=== PATIENT | male | born 1960 | race Caucasian/White ===

== ENCOUNTER → 2020-01-06 15:35 | Outpatient (CLI) | payer OTHER, SELFPAY ==
--- NOTE | 2020-01-06 15:54 | CT_ITS ---
PROCEDURE: CT ABDOMEN PELVIS WO CON CLINICAL INDICATION: UNSPECIFIED KIDNEY FAILURE, LUQ ABD PAIN Left flank pain, left lower quadrant with nausea and chills COMPARISON: No exams were available for comparison TECHNIQUE: Axial images obtained with sagittal and coronal reformats. All CT scans at the facility use one or more dose reduction, viz: automated exposure control, ma/kV adjustment per patient size (including targeted exams where dose is matched to indication, i.e. head), or iterative reconstruction technique. FINDINGS: LOWER THORAX: No acute finding ABDOMEN & PELVIS: Mild nonspecific thickening of the distal esophagus. There are few hypodense areas of the liver in both right and left hepatic lobe measuring up to 15 mm. The spleen, adrenal glands, pancreas, and gallbladder have an unremarkable appearance. No renal or ureteral calculi are evident. A 3 cm by 3.8 cm isodense exophytic mass projects off the lower aspect of the right kidney and could represent a renal cyst. This nodule is indeterminate and may be due to a cyst however the density is slightly higher than expected. Suggest ultrasound for confirmation. There is a small right parapelvic renal cyst also suspected. Atherosclerotic changes are present within the aorta. There are few small retroperitoneal lymph nodes. Unremarkable appendix. No intestinal obstruction or free air. There is colonic diverticulosis but no evidence of diverticulitis. No acute bony findings. IMPRESSION: 1. No acute finding. 2. Colonic diverticulosis without diverticulitis. 3. 3.8 cm I so density projecting off of lateral aspect of the right kidney which may represent a renal cyst. The density is slightly greater than expected therefore, ultrasound is suggested to confirm cystic or solid nature of this lesion. Dictated by: Carrington Vazquez MD 01/06/2020 17:07 Carrington Vazquez MD in [place] 01/06/2020 17:07
== END ==
PROVIDERS: Visit Provider Internal Medicine Adolescent Medicine
DX: R10.12 Left upper quadrant pain (principal); N19 Unspecified kidney failure
CPT/HCPCS: 74176

== ENCOUNTER → 2020-01-24 11:02 | Outpatient (CLI) | payer OTHER, SELFPAY ==
[2020-01-24 11:42] LABS: Basophils # 0.1 K/mm3 (0-0.2); Eosinophils # 0.5 K/mm3 (0.0-0.4); Eosinophils % 8.6 % (0.1-12.0); Hematocrit 38.2 % (42.0-52.0); Hemoglobin 11.8 g/dL (14.1-18.0); Lymphocytes # 1.6 K/mm3 (0.7-4.5); Mean Corpuscular HGB Conc 30.9 g/dL (31.8-35.4); Mean Corpuscular Hemoglobin 29.7 pg (27.0-31.2); Mean Corpuscular Volume 96.1 fl (80-94); Monocytes # 0.4 K/mm3 (0.1-1.0); Monocytes % 6.3 % (1.7-9.3); Neutrophils # 3.5 K/mm3 (1.8-7.8); Neutrophils % 57.2 % (37.0-80.0); Platelet Count 167 K/mm3 (142-424); Red Blood Count 3.97 M/mm3 (4.60-6.20); White Blood Count 6.2 K/mm3 (4.8-10.8)
[2020-01-24 12:28] LABS: Alanine Aminotransferase 16 U/L (12-78); Albumin Level 4.4 g/dl (3.5-5.0); Albumin/Globulin Ratio 1.6 (1.1-1.8); Alkaline Phosphatase 103 U/L (38-126); Anion Gap 16.3 mEq/L (5-15); Aspartate Amino Transferase 22 U/L (17-59); Bilirubin,Total 0.5 mg/dl (0.2-1.3); Blood Urea Nitrogen 38 mg/dl (9-20); Calcium 7.9 mg/dl (8.4-10.2); Carbon Dioxide 21 mmol/L (22.0-30.0); Chloride 108 mmol/L (98-107); Chol/HDL Ratio 4.7 (1-3.5); Cholesterol 222 mg/dl (140-200); Estimated Glomerular Filt Rate 10 ml/min (>60); GFR (African American) 12 ML/MIN (>60); Globulin 2.8 g/dL (1.3-3.2); Glucose 97 mg/dl (74-100); HDL Cholesterol 47 mg/dl (40-60); Lipase 315 U/L (23-300); Potassium 4.3 mmoL/L (3.5-5.1); Sodium 141 mmol/L (136-145); Total Protein,Serum 7.2 g/dl (6.3-8.2); Triglycerides 219 mg/dl (30-150); VLDL Cholesterol 44 mg/dL (0-40)
[2020-01-24 12:38] LABS: Direct LDL Cholesterol 136.06 mg/dL (100-129)
[2020-01-24 12:59] LABS: Thyroid Stimulating Hormone 0.53 uIU/mL (0.465-4.68)
[2020-01-24 13:45] LABS: Hemoglobin A1C 5.8 % (4.0-6.0)
[2020-01-24 15:28] LABS: Phosphorous 6.2 mg/dl (2.5-4.5)
== END ==
PROVIDERS: Visit Provider Internal Medicine Adolescent Medicine
DX: I10 Essential (primary) hypertension (principal); R10.12 Left upper quadrant pain; N19 Unspecified kidney failure
CPT/HCPCS: 36415; 80053; 80061; 83036; 83690; 84100; 84443; 85025

== ENCOUNTER → 2020-02-10 10:57 | Outpatient (CLI) | payer OTHER, SELFPAY ==
[2020-02-10 11:01] LABS: Microscopic, Urine URINE MICROSCOPIC (MICROSCOPIC)
[2020-02-10 11:36] LABS: Appearance,Urine CLEAR (Clear); Bilirubin,Urine Negative (Negative); Blood, Urine 1+ (Negative); Color,Urine YELLOW (Yellow); Glucose,Urine (UA) TRACE (Negative); Ketones,Urine Negative (Negative); Leukocyte Esterase,Urine Negative (Negative); Nitrate,Urine Negative (Negative); Protein,Urine 2+ (Negative); Specific Gravity, Urine 1.025 (1.005-1.030); Urobilinogen,Urine 0.2 EU/dl (0.2)
[2020-02-10 11:48] LABS: Basophils # 0.1 K/mm3 (0-0.2); Eosinophils # 0.3 K/mm3 (0.0-0.4); Eosinophils % 3.9 % (0.1-12.0); Hematocrit 39.9 % (42.0-52.0); Hemoglobin 12.4 g/dL (14.1-18.0); Lymphocytes # 1.4 K/mm3 (0.7-4.5); Lymphocytes % 22.5 % (10-50); Mean Corpuscular Hemoglobin 29.1 pg (27.0-31.2); Mean Corpuscular Volume 94.1 fl (80-94); Mean Platelet Volume 8.6 fl (7.4-10.4); Monocytes # 0.4 K/mm3 (0.1-1.0); Monocytes % 6.3 % (1.7-9.3); Neutrophils # 4.2 K/mm3 (1.8-7.8); Neutrophils % 66.2 % (37.0-80.0); Platelet Count 195 K/mm3 (142-424); Red Blood Count 4.24 M/mm3 (4.60-6.20); Red Cell Distribution Width 13.1 % (11.5-17.5); White Blood Count 6.4 K/mm3 (4.8-10.8)
[2020-02-10 11:50] LABS: Amorphous Sediment,Urine 1+ /lpf; Creatinine,Urine Random 95 mg/dL (Not Estab.); Squamous Epithelial Cell,Urine Occasional #/hpf (0-5); WBC,Urine Occasional #/hpf (0-3)
[2020-02-10 14:28] LABS: Albumin Level 4.4 g/dl (3.5-5.0); Anion Gap 16.7 mEq/L (5-15); Blood Urea Nitrogen 39 mg/dl (9-20); Calcium 8.6 mg/dl (8.4-10.2); Carbon Dioxide 20 mmol/L (22.0-30.0); Chloride 109 mmol/L (98-107); Estimated Glomerular Filt Rate 11 ml/min (>60); GFR (African American) 13 ML/MIN (>60); Glucose 101 mg/dl (74-100); Phosphorous 5.8 mg/dl (2.5-4.5); Potassium 4.7 mmoL/L (3.5-5.1); Sodium 141 mmol/L (136-145)
[2020-02-10 14:41] LABS: Intact Parathyroid Hormone 545.6 pg/mL (7.5-53.5)
[2020-02-10 14:46] LABS: 25-OH Vitamin D, Total 40.3 ng/mL (30-100)
== END ==
PROVIDERS: Visit Provider Internal Medicine Nephrology
DX: N18.5 Chronic kidney disease, stage 5 (principal)
CPT/HCPCS: 36415; 80069; 81001; 82306; 82570; 83970; 84155; 85025

== ENCOUNTER → 2020-02-13 09:25 | Outpatient (POV) | payer OTHER, SELFPAY | PROVIDERS: Visit Provider Internal Medicine Nephrology | DX: Z00.00 Encounter for general adult medical examination without abnormal findings (principal) ==

== ENCOUNTER → 2020-03-16 10:39 | Outpatient (CLI) | payer OTHER, SELFPAY ==
--- NOTE | 2020-03-16 10:41 | US_ITS ---
PROCEDURE: US KIDNEY CLINICAL INDICATION: CHRONIC KIDNEY DISEASE COMPARISON: CT CT ABDOMEN PELVIS WO CON from 01/06/2020 FINDINGS: The right kidney is [id number]. No hydronephrosis, cortical thinning, or renal mass or perinephric fluid collection is evident.. There is a 4 x 3 cm cyst along the lower pole of the right kidney corresponding to the CT abnormality. The left kidney is [id number]. No hydronephrosis, cortical thinning, or renal mass or perinephric fluid collection is evident. IMPRESSION: CT abnormality of the right kidney corresponds to a 4 cm benign-appearing cyst. Dictated by: Carrington Vazquez MD 03/16/2020 17:22 Carrington Vazquez MD in [place] 03/16/2020 17:22
[2020-03-17 11:18] LABS: Hep A Ab, IgM Negative (Negative); Hepatitis B Core Antibody IgM Negative (Negative); Hepatitis B Surface Antigen Negative (Negative)
[2020-03-17 12:55] LABS: Complement C3 101 mg/dL (82-167); Hepatitis C Antibody <0.1 s/co ratio (0.0-0.9)
[2020-03-17 15:18] LABS: Free Kappa Lt Chains 103.2 mg/L (3.3-19.4)
[2020-03-18 20:12] LABS: Myeloperoxidase Antibody <9.0 U/mL (0.0-9.0)
[2020-03-19 10:29] LABS: Antiproteinase 3 (PR-3) Abs 3.6 U/mL (0.0-3.5)
[2020-03-19 10:30] LABS: Antinuclear Antibodies, IFA Negative (.)
[2020-03-19 13:39] LABS: Anti-DNA (DS) Ab Qn 1 IU/mL (0-9)
[2020-03-19 16:11] LABS: Albumin 3.7 g/dL (2.9-4.4); Alpha-1-Globulin 0.2 g/dL (0.0-0.4); Alpha-2-Globulin 0.6 g/dL (0.4-1.0); Gamma Globulin 0.8 g/dL (0.4-1.8); Protein, Total 6.3 g/dL (6.0-8.5)
[2020-03-22 11:01] LABS: Renin Activity, Plasma 2.146 ng/mL/hr (0.167-5.380)
== END ==
PROVIDERS: PCP Internal Medicine Adolescent Medicine; Visit Provider Internal Medicine Nephrology
DX: N18.5 Chronic kidney disease, stage 5 (principal)
CPT/HCPCS: 36415; 76770; 80074; 82088; 83520; 83883; 84155; 84165; 84244; 86038; 86161; 86225

== ENCOUNTER → 2020-03-19 09:05 | Outpatient (POV) | payer OTHER, SELFPAY | PROVIDERS: Visit Provider Internal Medicine Nephrology | DX: Z00.00 Encounter for general adult medical examination without abnormal findings (principal) ==

== ENCOUNTER → 2020-05-04 12:54 | Outpatient (CLI) | payer OTHER, SELFPAY ==
[2020-05-04 13:32] LABS: Basophils # 0.1 K/mm3 (0-0.2); Basophils % 1.2 % (0.1-2.0); Eosinophils # 0.3 K/mm3 (0.0-0.4); Eosinophils % 4.7 % (0.1-12.0); Hematocrit 37.5 % (42.0-52.0); Hemoglobin 12.4 g/dL (14.1-18.0); Lymphocytes % 28.6 % (10-50); Mean Corpuscular HGB Conc 33.1 g/dL (31.8-35.4); Mean Corpuscular Hemoglobin 29.9 pg (27.0-31.2); Mean Corpuscular Volume 90.4 fl (80-94); Monocytes # 0.5 K/mm3 (0.1-1.0); Monocytes % 6.8 % (1.7-9.3); Neutrophils # 4.1 K/mm3 (1.8-7.8); Neutrophils % 58.8 % (37.0-80.0); Platelet Count 193 K/mm3 (142-424); Red Blood Count 4.15 M/mm3 (4.60-6.20); Red Cell Distribution Width 13.7 % (11.5-17.5)
[2020-05-04 14:04] LABS: Chloride 101 mmol/L (98-107); Potassium 3.7 mmoL/L (3.5-5.1); Sodium 138 mmol/L (136-145)
[2020-05-04 14:07] LABS: Alanine Aminotransferase 11 U/L (12-78); Albumin Level 4.6 g/dl (3.5-5.0); Albumin/Globulin Ratio 1.6 (1.1-1.8); Alkaline Phosphatase 122 U/L (38-126); Anion Gap 17.7 mEq/L (5-15); Aspartate Amino Transferase 16 U/L (17-59); Bilirubin,Total 0.4 mg/dl (0.2-1.3); Blood Urea Nitrogen 62 mg/dl (9-20); Calcium 8.4 mg/dl (8.4-10.2); Carbon Dioxide 23 mmol/L (22.0-30.0); Estimated Glomerular Filt Rate 8 ml/min (>60); GFR (African American) 10 ML/MIN (>60); Globulin 2.9 g/dL (1.3-3.2); Glucose 128 mg/dl (74-100); Phosphorous 7.5 mg/dl (2.5-4.5); Total Protein,Serum 7.5 g/dl (6.3-8.2)
[2020-05-04 14:45] LABS: 25-OH Vitamin D, Total 48.9 ng/mL (30-100)
[2020-05-04 17:36] LABS: Intact Parathyroid Hormone 758.6 pg/mL (7.5-53.5)
[2020-05-07 14:46] LABS: Calcium, Ionized 4.3 mg/dL (4.5-5.6)
== END ==
PROVIDERS: Visit Provider Internal Medicine Adolescent Medicine
DX: I12.9 Hypertensive chronic kidney disease with stage 1 through stage 4 chronic kidney disease, or unspecified chronic kidney disease (principal); N18.4 Chronic kidney disease, stage 4 (severe); E83.39 Other disorders of phosphorus metabolism
CPT/HCPCS: 36415; 80053; 82306; 82330; 83970; 84100; 85025

== ENCOUNTER → 2020-06-23 09:06 | Outpatient (CLI) | payer OTHER, SELFPAY ==
[2020-06-23 09:31] LABS: Coronavirus 19 IgM Antibody Negative (Negative)
[2020-06-23 11:29] LABS: Coronavirus 19 IgG Antibody Negative (Negative)
== END ==
PROVIDERS: Visit Provider Internal Medicine Gastroenterology
DX: Z01.818 Encounter for other preprocedural examination (principal); Z20.822 Contact with and (suspected) exposure to COVID-19; Z12.11 Encounter for screening for malignant neoplasm of colon
CPT/HCPCS: 36415; 86328

== ENCOUNTER → 2020-07-13 09:23 | Outpatient (CLI) | payer OTHER, SELFPAY ==
[2020-07-13 10:32] LABS: Albumin Level 4.6 g/dl (3.5-5.0); Anion Gap 15.5 mEq/L (5-15); Blood Urea Nitrogen 65 mg/dl (9-20); Calcium 8.1 mg/dl (8.4-10.2); Carbon Dioxide 22 mmol/L (22.0-30.0); Chloride 104 mmol/L (98-107); Estimated Glomerular Filt Rate 9 ml/min (>60); GFR (African American) 11 ML/MIN (>60); Glucose 116 mg/dl (74-100); Phosphorous 6.1 mg/dl (2.5-4.5); Potassium 3.5 mmoL/L (3.5-5.1); Sodium 138 mmol/L (136-145)
[2020-07-13 10:45] LABS: Intact Parathyroid Hormone 735.8 pg/mL (7.5-53.5)
[2020-07-13 10:50] LABS: 25-OH Vitamin D, Total 57.8 ng/mL (30-100)
[2020-07-14 19:15] LABS: Calcium, Ionized 4.3 mg/dL (4.5-5.6)
== END ==
PROVIDERS: Visit Provider Internal Medicine Nephrology
DX: N18.5 Chronic kidney disease, stage 5 (principal)
CPT/HCPCS: 36415; 80069; 82306; 82330; 83970

== ENCOUNTER → 2020-07-16 10:57 | Outpatient (POV) | payer OTHER, SELFPAY | PROVIDERS: Visit Provider Internal Medicine Nephrology | DX: Z00.00 Encounter for general adult medical examination without abnormal findings (principal) ==

== ENCOUNTER → 2020-08-04 10:56 | Outpatient (CLI) | payer OTHER, SELFPAY ==
[2020-08-04 13:38] LABS: Coronavirus 19 IgG Antibody Negative (Negative); Coronavirus 19 IgM Antibody Negative (Negative)
== END ==
PROVIDERS: Visit Provider Internal Medicine Gastroenterology
DX: Z01.812 Encounter for preprocedural laboratory examination (principal); Z20.822 Contact with and (suspected) exposure to COVID-19; Z12.11 Encounter for screening for malignant neoplasm of colon
CPT/HCPCS: 36415; 86328

== ENCOUNTER 2020-08-06 08:02 | Day surgery (SDC) | payer OTHER, SELFPAY ==
[2020-07-31 11:12] VITALS: BMI 26.6
[2020-08-06] VITALS (7 sets, daily range): BP systolic 141–195; BP diastolic 80–100; PULSE 52–74; RESP 18; TEMP 36.3; O2SAT 95–99
--- NOTE | 2020-08-06 09:00 | P.PCN_ITS ---
[facility] Procedure Note Procedure Note:: Colonoscopy Procedure Report: Colonoscopy with cold snare polypectomy and hemorrhoid band ligation Endoscopist: Wil Turner II, MD Referring physician: Andreas Haddad MD Date of Procedure: August 06, 2020 Equipment: Olympus 190 variable stiffness pediatric colonoscope Sedation: MAC sedation Indication: Mr. Givens is a 59-year-old gentleman with bright red rectal bleeding that occurred about 3 months ago. He did have a recurrence in the morning a week or 2 ago. He does get some left-sided abdominal discomfort infrequently. He takes gas pills to alleviate. He reports regular bowel function. He reports no change in bowel habits, weight loss or family history of colon cancer. This is his first colonoscopy. He is on the kidney transplant list. Procedure: Prior to the procedure, a history and physical exam was performed, and patient's medications and allergies were reviewed. The risks, benefits and alternatives of the sedation and procedure were discussed with the patient. All questions were answered and informed consent was obtained. The patient was brought to the procedure room. Patient identification and proposed procedure were verified by the physician and the nurse. The patient was placed in a left lateral decubitus position and the scope was passed under direct vision. Throughout the procedure, the patient's blood pressure, pulse, and oxygen saturations were monitored continuously. The colonoscopy was accomplished without difficulty. The patient tolerated the procedure well. Findings: On digital rectal examination there was normal rectal tone. There were no external hemorrhoids. There was some hemorrhoidal prolapse. The prostate was 1-2+, mildly firm and mildly asymmetric without nodules. The colonoscope was introduced through the anal canal to the rectum and advanced to the cecum. The ileocecal valve and appendiceal orifice were identified. The scope was advanced a short distance into the ileum which appeared grossly normal. The scope was then withdrawn into the colon. There were a total of 6 colon polyps (ascending x1 (4 mm), transverse x1 (5 mm), descending x2 (3 and 4 mm) and sigmoid x2 (3 and 5 mm)) which were all removed via cold snare polypectomy. The remaining cecum, ascending and transverse colon and mucosa were grossly normal. There were mildly scattered diverticuli throughout the descending and sigmoid colon (LEFT colon). The rectum itself was normal. Upon retroflexion within the rectum there were grade 2 internal hemorrhoids. These were banded using 3 bands on 3 columns of hemorrhoids with excellent ligation effect. The preparation was fair throughout with [place] Preparation Score of 7 out of 9. The cecal time was 12 minutes. Impression: 1. Colonic polyps x6 2. Mild left-sided diverticulosis 3. Grade 2 internal hemorrhoids status post band ligation x3 Plan: I will follow up the polyp pathology and recommend repeat colonoscopy again in 3-5 years based upon the polyp histology. I would encourage bulking fiber supplementation on a long-term daily maintenance basis.
--- NOTE | 2020-08-06 15:26 | P.PN_ITS ---
[facility] Anesthesia Checklist - Patient Identification Patient Identification: Arm Band - Structural Data Admitted From: Home Planned Operative Procedure/s: Colonoscopy Consent for Planned Operative Procedure(s) Verified: Yes Verified Documents: Surgical Consent, History and Physical - NPO Status Verified Time NPO: 00:00 - Airway Assessment C-Spine Mobility Assessed: Yes TMJ Mobility Assessed: Yes Dentition: Good Dentition - Neurological Assessment Level of Consciousness: Awake, Alert - Anesthesia Plan Anesthesia Risk discussed: Yes Anesthesia Plan: Verified ASA Class: III Anesthesia Type: MAC [facility] History Medical History: Reports:: Hypertension Denies:: Cancer, Diabetes Mellitus Type 1, Diabetes Mellitus Type 2, Internal Pacemaker, MRSA, Seizures *Have you ever received a pneumonia vaccine?: Yes *Have you received a flu vaccine this season?: No Other Medical History: Reports: Other (kidney disease due to stage 4 HTN) Anesthesia experience/problems:: None Other Surgeries: Yes: No Previous Surgery. No: Pacemaker Amputation: No Fractures: No - *Social History Last grade of school completed: 9th or 10th Smoking Status: Former smoker #Yrs smoked (if former smoker): 40 Alcohol Intake: former Alcohol Intake Frequency:: holidays/special occasions only Substance Use Type: marijuana Last Used Substance: days (ago) *Occupational Status:: employed Housing: house Household Members: friend(s) *Travel in the last 8 weeks: None Family Hx:: Hypertension
== END 2020-08-06 10:45 | disposition home or self-care (01) ==
LOC: OUTP 08:04
PROVIDERS: PCP Internal Medicine Adolescent Medicine; Visit Provider Internal Medicine Gastroenterology
PROC: 0DJD8ZZ Inspection of Lower Intestinal Tract, Via Natural or Artificial Opening Endoscopic (ICD-10-PCS; CPT 45378; principal; 2020-08-06 09:00)
DX: K63.5 Polyp of colon; K57.30 Diverticulosis of large intestine without perforation or abscess without bleeding; K64.1 Second degree hemorrhoids; N18.4 Chronic kidney disease, stage 4 (severe); I10 Essential (primary) hypertension; F12.90 Cannabis use, unspecified, uncomplicated; Z82.49 Family history of ischemic heart disease and other diseases of the circulatory system; Z79.899 Other long term (current) drug therapy
CPT/HCPCS: 45385; 45398; J2704

== ENCOUNTER → 2020-08-30 09:02 | Outpatient (CLI) | payer OTHER, SELFPAY | PROVIDERS: Visit Provider Transplant Surgery | DX: Z94.0 Kidney transplant status (principal) | CPT/HCPCS: 36415 ==

== ENCOUNTER → 2020-09-13 12:12 | Outpatient (CLI) | payer OTHER, SELFPAY ==
[2020-09-13 12:37] LABS: Basophils # 0.1 K/mm3 (0-0.2); Basophils % 1.1 % (0.1-2.0); Eosinophils # 0.3 K/mm3 (0.0-0.4); Hemoglobin 12.3 g/dL (14.1-18.0); Lymphocytes # 1.5 K/mm3 (0.7-4.5); Lymphocytes % 21.9 % (10-50); Mean Corpuscular HGB Conc 33.3 g/dL (31.8-35.4); Mean Corpuscular Hemoglobin 29.6 pg (27.0-31.2); Mean Corpuscular Volume 88.9 fl (80-94); Mean Platelet Volume 9.1 fl (7.4-10.4); Monocytes # 0.4 K/mm3 (0.1-1.0); Monocytes % 5.9 % (1.7-9.3); Neutrophils # 4.6 K/mm3 (1.8-7.8); Neutrophils % 67.1 % (37.0-80.0); Platelet Count 195 K/mm3 (142-424); Red Blood Count 4.17 M/mm3 (4.60-6.20); Red Cell Distribution Width 13.6 % (11.5-17.5); White Blood Count 6.8 K/mm3 (4.8-10.8)
[2020-09-13 13:43] LABS: Albumin Level 4.5 g/dl (3.5-5.0); Anion Gap 17.9 mEq/L (5-15); Blood Urea Nitrogen 57 mg/dl (9-20); Calcium 7.9 mg/dl (8.4-10.2); Carbon Dioxide 18 mmol/L (22.0-30.0); Chloride 106 mmol/L (98-107); Estimated Glomerular Filt Rate 9 ml/min (>60); GFR (African American) 11 ML/MIN (>60); Glucose 131 mg/dl (74-100); Phosphorous 5.9 mg/dl (2.5-4.5); Potassium 3.9 mmoL/L (3.5-5.1); Sodium 138 mmol/L (136-145)
== END ==
PROVIDERS: Visit Provider Internal Medicine Nephrology
DX: N18.5 Chronic kidney disease, stage 5 (principal)
CPT/HCPCS: 36415; 80069; 85025

== ENCOUNTER → 2020-09-17 09:03 | Outpatient (POV) | payer OTHER, SELFPAY | PROVIDERS: Visit Provider Internal Medicine Nephrology | DX: Z00.00 Encounter for general adult medical examination without abnormal findings (principal) ==

== ENCOUNTER → 2020-10-19 13:35 | Outpatient (CLI) | payer OTHER, SELFPAY | PROVIDERS: Visit Provider Transplant Surgery | DX: Z94.0 Kidney transplant status (principal) | CPT/HCPCS: 36415 ==

== ENCOUNTER → 2020-11-09 09:05 | Outpatient (CLI) | payer OTHER, SELFPAY ==
[2020-11-09 09:19] LABS: Basophils # 0.1 K/mm3 (0-0.2); Basophils % 1.1 % (0.1-2.0); Eosinophils # 0.3 K/mm3 (0.0-0.4); Eosinophils % 5.1 % (0.1-12.0); Hematocrit 36.5 % (42.0-52.0); Hemoglobin 12.4 g/dL (14.1-18.0); Lymphocytes # 1.6 K/mm3 (0.7-4.5); Lymphocytes % 27.4 % (10-50); Mean Corpuscular Hemoglobin 29.8 pg (27.0-31.2); Mean Corpuscular Volume 87.6 fl (80-94); Mean Platelet Volume 9.2 fl (7.4-10.4); Monocytes # 0.3 K/mm3 (0.1-1.0); Monocytes % 5.8 % (1.7-9.3); Neutrophils # 3.5 K/mm3 (1.8-7.8); Neutrophils % 60.5 % (37.0-80.0); Platelet Count 167 K/mm3 (142-424); Red Blood Count 4.17 M/mm3 (4.60-6.20); Red Cell Distribution Width 13.9 % (11.5-17.5); White Blood Count 5.9 K/mm3 (4.8-10.8)
[2020-11-09 09:48] LABS: Albumin Level 4.2 g/dl (3.5-5.0); Anion Gap 16.5 mEq/L (5-15); Blood Urea Nitrogen 46 mg/dl (9-20); Calcium 7.5 mg/dl (8.4-10.2); Carbon Dioxide 22 mmol/L (22.0-30.0); Chloride 105 mmol/L (98-107); Estimated Glomerular Filt Rate 10 ml/min (>60); GFR (African American) 12 ML/MIN (>60); Glucose 130 mg/dl (74-100); Phosphorous 5.3 mg/dl (2.5-4.5); Potassium 3.5 mmoL/L (3.5-5.1); Sodium 140 mmol/L (136-145)
== END ==
PROVIDERS: Visit Provider Internal Medicine Nephrology
DX: N18.5 Chronic kidney disease, stage 5 (principal)
CPT/HCPCS: 36415; 80069; 85025

== ENCOUNTER → 2020-11-12 09:35 | Outpatient (POV) | payer OTHER, SELFPAY | PROVIDERS: Visit Provider Internal Medicine Nephrology | DX: Z00.00 Encounter for general adult medical examination without abnormal findings (principal) ==

== ENCOUNTER → 2021-01-28 09:09 | Outpatient (CLI) | payer OTHER, SELFPAY ==
[2021-01-28 09:17] LABS: Microscopic, Urine URINE MICROSCOPIC (MICROSCOPIC)
[2021-01-28 09:42] LABS: Appearance,Urine CLEAR (Clear); Basophils # 0.1 K/mm3 (0-0.2); Basophils % 0.7 % (0.1-2.0); Bilirubin,Urine Negative (Negative); Blood, Urine Negative (Negative); Color,Urine YELLOW (Yellow); Eosinophils # 0.1 K/mm3 (0.0-0.4); Eosinophils % 1.4 % (0.1-12.0); Glucose,Urine (UA) Negative (Negative); Hematocrit 40.5 % (42.0-52.0); Hemoglobin 12.8 g/dL (14.1-18.0); Ketones,Urine Negative (Negative); Leukocyte Esterase,Urine Negative (Negative); Lymphocytes # 0.7 K/mm3 (0.7-4.5); Lymphocytes % 7.7 % (10-50); Mean Corpuscular HGB Conc 31.7 g/dL (31.8-35.4); Mean Corpuscular Hemoglobin 30.4 pg (27.0-31.2); Mean Corpuscular Volume 95.9 fl (80-94); Mean Platelet Volume 7.7 fl (7.4-10.4); Monocytes # 0.3 K/mm3 (0.1-1.0); Neutrophils # 7.1 K/mm3 (1.8-7.8); Neutrophils % 86.1 % (37.0-80.0); Nitrate,Urine Negative (Negative); Platelet Count 256 K/mm3 (142-424); Protein,Urine Negative (Negative); Red Blood Count 4.23 M/mm3 (4.60-6.20); Red Cell Distribution Width 13.8 % (11.5-17.5); Specific Gravity, Urine >= 1.030 (1.005-1.030); Urobilinogen,Urine 0.2 EU/dl (0.2); White Blood Count 8.3 K/mm3 (4.8-10.8)
[2021-01-28 09:51] LABS: MANUAL DIFFERENTIAL MANUAL DIFFERENTIAL (MANUAL DIFF)
[2021-01-28 10:02] LABS: Albumin Level 4.2 g/dl (3.5-5.0); Anion Gap 12.6 mEq/L (5-15); Blood Urea Nitrogen 15 mg/dl (9-20); Calcium 9.4 mg/dl (8.4-10.2); Carbon Dioxide 24 mmol/L (22.0-30.0); Chloride 104 mmol/L (98-107); Estimated Glomerular Filt Rate 69 ml/min (>60); GFR (African American) 83 ML/MIN (>60); Glucose 128 mg/dl (74-100); Magnesium 1.5 mg/dl (1.6-2.3); Phosphorous 2.8 mg/dl (2.5-4.5); Potassium 4.6 mmoL/L (3.5-5.1); Sodium 136 mmol/L (136-145)
[2021-01-28 11:31] LABS: Eosinophils % 4 % (0-3); Hypochromasia 2+; Lymphocytes % 2 % (10-50); Monocytes % 8 % (2-9); Neutrophils % 86 % (42-76); Platelet Estimate Normal; Total Cells Counted 100
== END ==
PROVIDERS: Visit Provider Internal Medicine
DX: Z94.0 Kidney transplant status (principal)
CPT/HCPCS: 36415; 80069; 81001; 83735; 85007; 85025

== ENCOUNTER → 2021-01-31 07:54 | Outpatient (CLI) | payer OTHER, SELFPAY | PROVIDERS: Visit Provider Internal Medicine | DX: Z94.0 Kidney transplant status (principal) | CPT/HCPCS: 36415 ==

== ENCOUNTER → 2021-03-21 07:32 | Outpatient (CLI) | payer OTHER, SELFPAY ==
[2021-03-21 07:36] LABS: Microscopic, Urine URINE MICROSCOPIC (MICROSCOPIC)
[2021-03-21 07:56] LABS: Appearance,Urine CLEAR (Clear); Bilirubin,Urine Negative (Negative); Blood, Urine Negative (Negative); Color,Urine YELLOW (Yellow); Glucose,Urine (UA) Negative (Negative); Ketones,Urine Negative (Negative); Leukocyte Esterase,Urine Negative (Negative); Nitrate,Urine Negative (Negative); Protein,Urine Negative (Negative); Urobilinogen,Urine 0.2 EU/dl (0.2)
[2021-03-21 08:04] LABS: Basophils % 1.2 % (0.1-2.0); Eosinophils # 0.1 K/mm3 (0.0-0.4); Eosinophils % 4.7 % (0.1-12.0); Hematocrit 30.8 % (42.0-52.0); Hemoglobin 10.2 g/dL (14.1-18.0); Lymphocytes # 0.3 K/mm3 (0.7-4.5); Lymphocytes % 20.6 % (10-50); Mean Corpuscular Volume 90.9 fl (80-94); Mean Platelet Volume 8.9 fl (7.4-10.4); Monocytes % 1.7 % (1.7-9.3); Neutrophils # 1.2 K/mm3 (1.8-7.8); Neutrophils % 71.8 % (37.0-80.0); Platelet Count 270 K/mm3 (142-424); Red Blood Count 3.38 M/mm3 (4.60-6.20); Red Cell Distribution Width 14.1 % (11.5-17.5)
[2021-03-21 08:37] LABS: Albumin Level 4.1 g/dl (3.5-5.0); Blood Urea Nitrogen 16 mg/dl (9-20); Calcium 9.3 mg/dl (8.4-10.2); Carbon Dioxide 27 mmol/L (22.0-30.0); Chloride 107 mmol/L (98-107); Estimated Glomerular Filt Rate 48 ml/min (>60); GFR (African American) 58 ML/MIN (>60); Glucose 115 mg/dl (74-100); Magnesium 1.5 mg/dl (1.6-2.3); Sodium 138 mmol/L (136-145)
[2021-03-21 11:06] LABS: White Blood Count 1.6 K/mm3 (4.8-10.8)
== END ==
PROVIDERS: Visit Provider Internal Medicine
DX: Z94.0 Kidney transplant status (principal)
CPT/HCPCS: 36415; 80069; 81001; 83735; 85025

== ENCOUNTER → 2021-03-28 08:10 | Outpatient (CLI) | payer OTHER, SELFPAY ==
[2021-03-28 08:23] LABS: Microscopic, Urine URINE MICROSCOPIC (MICROSCOPIC)
[2021-03-28 08:39] LABS: Appearance,Urine CLEAR (Clear); Bilirubin,Urine Negative (Negative); Blood, Urine Negative (Negative); Color,Urine YELLOW (Yellow); Glucose,Urine (UA) Negative (Negative); Ketones,Urine Negative (Negative); Leukocyte Esterase,Urine Negative (Negative); Nitrate,Urine Negative (Negative); Protein,Urine Negative (Negative); Urobilinogen,Urine 0.2 EU/dl (0.2)
[2021-03-28 09:02] LABS: Basophils % 1.9 % (0.1-2.0); Eosinophils # 0.1 K/mm3 (0.0-0.4); Eosinophils % 5.1 % (0.1-12.0); Hematocrit 31.7 % (42.0-52.0); Hemoglobin 10.7 g/dL (14.1-18.0); Lymphocytes # 0.4 K/mm3 (0.7-4.5); Lymphocytes % 24.8 % (10-50); Mean Corpuscular HGB Conc 33.6 g/dL (31.8-35.4); Mean Corpuscular Hemoglobin 30.3 pg (27.0-31.2); Mean Platelet Volume 8.1 fl (7.4-10.4); Monocytes % 2.3 % (1.7-9.3); Neutrophils % 65.8 % (37.0-80.0); Platelet Count 258 K/mm3 (142-424); Red Blood Count 3.52 M/mm3 (4.60-6.20); Red Cell Distribution Width 14.2 % (11.5-17.5); White Blood Count 1.5 K/mm3 (4.8-10.8)
[2021-03-28 09:25] LABS: Albumin Level 4.3 g/dl (3.5-5.0); Chloride 106 mmol/L (98-107); Potassium 4.3 mmoL/L (3.5-5.1); Sodium 139 mmol/L (136-145)
[2021-03-28 09:27] LABS: Blood Urea Nitrogen 16 mg/dl (9-20); Estimated Glomerular Filt Rate 45 ml/min (>60); GFR (African American) 54 ML/MIN (>60)
[2021-03-28 09:28] LABS: Anion Gap 13.3 mEq/L (5-15); Calcium 9.2 mg/dl (8.4-10.2); Carbon Dioxide 24 mmol/L (22.0-30.0); Glucose 133 mg/dl (74-100); Magnesium 1.5 mg/dl (1.6-2.3); Phosphorous 3.1 mg/dl (2.5-4.5)
== END ==
PROVIDERS: Visit Provider Internal Medicine
DX: Z94.0 Kidney transplant status (principal)
CPT/HCPCS: 36415; 80069; 81001; 83735; 85025

== ENCOUNTER → 2021-04-02 08:04 | Outpatient (CLI) | payer OTHER, SELFPAY ==
[2021-04-02 08:09] LABS: Microscopic, Urine URINE MICROSCOPIC (MICROSCOPIC)
[2021-04-02 08:50] LABS: Basophils % 1.5 % (0.1-2.0); Eosinophils # 0.1 K/mm3 (0.0-0.4); Eosinophils % 5.6 % (0.1-12.0); Hematocrit 33.3 % (42.0-52.0); Hemoglobin 11.2 g/dL (14.1-18.0); Lymphocytes # 0.4 K/mm3 (0.7-4.5); Lymphocytes % 30.2 % (10-50); Mean Corpuscular HGB Conc 33.4 g/dL (31.8-35.4); Mean Corpuscular Hemoglobin 30.9 pg (27.0-31.2); Mean Corpuscular Volume 92.3 fl (80-94); Mean Platelet Volume 8.4 fl (7.4-10.4); Monocytes # 0.1 K/mm3 (0.1-1.0); Monocytes % 4.2 % (1.7-9.3); Neutrophils # 0.9 K/mm3 (1.8-7.8); Neutrophils % 58.6 % (37.0-80.0); Platelet Count 204 K/mm3 (142-424); Red Blood Count 3.61 M/mm3 (4.60-6.20); Red Cell Distribution Width 13.9 % (11.5-17.5); White Blood Count 1.4 K/mm3 (4.8-10.8)
[2021-04-02 08:54] LABS: Appearance,Urine CLEAR (Clear); Bilirubin,Urine Negative (Negative); Blood, Urine Negative (Negative); Color,Urine YELLOW (Yellow); Glucose,Urine (UA) Negative (Negative); Ketones,Urine Negative (Negative); Leukocyte Esterase,Urine 1+ (Negative); Nitrate,Urine Negative (Negative); PH,Urine 5.5 (5.0-8.5); Protein,Urine Negative (Negative); Urobilinogen,Urine 0.2 EU/dl (0.2)
[2021-04-02 09:51] LABS: Bacteria,Urine 1+ /lpf
[2021-04-02 10:36] LABS: Chloride 106 mmol/L (98-107)
[2021-04-02 10:37] LABS: Albumin Level 4.4 g/dl (3.5-5.0); Potassium 4.2 mmoL/L (3.5-5.1); Sodium 140 mmol/L (136-145)
[2021-04-02 10:39] LABS: Blood Urea Nitrogen 15 mg/dl (9-20); Estimated Glomerular Filt Rate 48 ml/min (>60); GFR (African American) 58 ML/MIN (>60)
[2021-04-02 10:40] LABS: Anion Gap 14.2 mEq/L (5-15); Carbon Dioxide 24 mmol/L (22.0-30.0); Glucose 114 mg/dl (74-100); Magnesium 1.5 mg/dl (1.6-2.3)
== END ==
PROVIDERS: Visit Provider Internal Medicine
DX: Z94.0 Kidney transplant status (principal)
CPT/HCPCS: 36415; 80069; 80197; 81001; 83735; 85025; 87086

== ENCOUNTER → 2021-04-09 08:12 | Outpatient (CLI) | payer OTHER, SELFPAY ==
[2021-04-09 08:17] LABS: Microscopic, Urine URINE MICROSCOPIC (MICROSCOPIC)
[2021-04-09 08:33] LABS: Basophils % 2.1 % (0.1-2.0); Eosinophils # 0.1 K/mm3 (0.0-0.4); Eosinophils % 6.5 % (0.1-12.0); Hematocrit 35.8 % (42.0-52.0); Hemoglobin 11.7 g/dL (14.1-18.0); Lymphocytes # 0.5 K/mm3 (0.7-4.5); Lymphocytes % 24.4 % (10-50); Mean Corpuscular HGB Conc 32.6 g/dL (31.8-35.4); Mean Corpuscular Hemoglobin 30.9 pg (27.0-31.2); Mean Corpuscular Volume 94.6 fl (80-94); Mean Platelet Volume 8.9 fl (7.4-10.4); Monocytes # 0.1 K/mm3 (0.1-1.0); Monocytes % 4.3 % (1.7-9.3); Neutrophils # 1.3 K/mm3 (1.8-7.8); Neutrophils % 62.7 % (37.0-80.0); Platelet Count 200 K/mm3 (142-424); Red Blood Count 3.79 M/mm3 (4.60-6.20); Red Cell Distribution Width 14.3 % (11.5-17.5); White Blood Count 2.1 K/mm3 (4.8-10.8)
[2021-04-09 08:37] LABS: Appearance,Urine CLEAR (Clear); Bilirubin,Urine Negative (Negative); Blood, Urine Negative (Negative); Color,Urine YELLOW (Yellow); Glucose,Urine (UA) Negative (Negative); Ketones,Urine Negative (Negative); Leukocyte Esterase,Urine Negative (Negative); Nitrate,Urine Negative (Negative); Protein,Urine Negative (Negative); Urobilinogen,Urine 0.2 EU/dl (0.2)
[2021-04-09 09:15] LABS: Squamous Epithelial Cell,Urine Occasional #/hpf (0-5); WBC,Urine Occasional #/hpf (0-3)
[2021-04-09 09:26] LABS: Albumin Level 4.5 g/dl (3.5-5.0); Anion Gap 16.2 mEq/L (5-15); Blood Urea Nitrogen 18 mg/dl (9-20); Calcium 9.4 mg/dl (8.4-10.2); Carbon Dioxide 21 mmol/L (22.0-30.0); Chloride 105 mmol/L (98-107); Estimated Glomerular Filt Rate 48 ml/min (>60); GFR (African American) 58 ML/MIN (>60); Glucose 169 mg/dl (74-100); Magnesium 1.3 mg/dl (1.6-2.3); Phosphorous 2.6 mg/dl (2.5-4.5); Potassium 4.2 mmoL/L (3.5-5.1); Sodium 138 mmol/L (136-145)
== END ==
PROVIDERS: Visit Provider Internal Medicine
DX: Z94.0 Kidney transplant status (principal)
CPT/HCPCS: 36415; 80069; 81001; 83735; 85025

== ENCOUNTER → 2021-04-25 08:23 | Outpatient (CLI) | payer OTHER, SELFPAY ==
[2021-04-25 08:26] LABS: Microscopic, Urine URINE MICROSCOPIC (MICROSCOPIC)
[2021-04-25 08:46] LABS: Appearance,Urine CLEAR (Clear); Bilirubin,Urine Negative (Negative); Blood, Urine Negative (Negative); Color,Urine YELLOW (Yellow); Glucose,Urine (UA) Negative (Negative); Ketones,Urine Negative (Negative); Leukocyte Esterase,Urine Negative (Negative); Nitrate,Urine Negative (Negative); Protein,Urine Negative (Negative); Urobilinogen,Urine 0.2 EU/dl (0.2)
[2021-04-25 08:54] LABS: Basophils # 0.1 K/mm3 (0-0.2); Eosinophils # 0.1 K/mm3 (0.0-0.4); Eosinophils % 4.7 % (0.1-12.0); Hematocrit 33.6 % (42.0-52.0); Hemoglobin 11.1 g/dL (14.1-18.0); Lymphocytes # 0.6 K/mm3 (0.7-4.5); Mean Corpuscular HGB Conc 33.1 g/dL (31.8-35.4); Mean Corpuscular Hemoglobin 31.8 pg (27.0-31.2); Mean Corpuscular Volume 95.9 fl (80-94); Mean Platelet Volume 9.2 fl (7.4-10.4); Monocytes # 0.2 K/mm3 (0.1-1.0); Monocytes % 6.5 % (1.7-9.3); Neutrophils # 1.8 K/mm3 (1.8-7.8); Neutrophils % 65.9 % (37.0-80.0); Platelet Count 200 K/mm3 (142-424); Red Cell Distribution Width 14.5 % (11.5-17.5); White Blood Count 2.8 K/mm3 (4.8-10.8)
[2021-04-25 09:08] LABS: Squamous Epithelial Cell,Urine Occasional #/hpf (0-5); WBC,Urine Occasional #/hpf (0-3)
[2021-04-25 10:18] LABS: Albumin Level 4.6 g/dl (3.5-5.0); Anion Gap 14.9 mEq/L (5-15); Blood Urea Nitrogen 18 mg/dl (9-20); Carbon Dioxide 24 mmol/L (22.0-30.0); Chloride 104 mmol/L (98-107); Estimated Glomerular Filt Rate 45 ml/min (>60); GFR (African American) 54 ML/MIN (>60); Glucose 150 mg/dl (74-100); Magnesium 1.6 mg/dl (1.6-2.3); Phosphorous 2.7 mg/dl (2.5-4.5); Potassium 3.9 mmoL/L (3.5-5.1); Sodium 139 mmol/L (136-145)
== END ==
PROVIDERS: PCP Internal Medicine Adolescent Medicine; Visit Provider Internal Medicine
DX: Z94.0 Kidney transplant status (principal)
CPT/HCPCS: 36415; 80069; 81001; 83735; 85025

== ENCOUNTER → 2021-05-02 08:24 | Outpatient (CLI) | payer OTHER, SELFPAY | PROVIDERS: PCP Internal Medicine Adolescent Medicine; Visit Provider Internal Medicine | DX: Z94.0 Kidney transplant status (principal) | CPT/HCPCS: 36415; 80069; 81001; 83735; 85025 ==

== ENCOUNTER → 2021-05-03 13:57 | Outpatient (CLI) | payer OTHER, SELFPAY ==
[2021-05-03 14:01] LABS: Microscopic, Urine URINE MICROSCOPIC (MICROSCOPIC)
[2021-05-03 14:37] LABS: Basophils # 0.1 K/mm3 (0-0.2); Basophils % 1.6 % (0.1-2.0); Eosinophils # 0.1 K/mm3 (0.0-0.4); Eosinophils % 2.3 % (0.1-12.0); Hematocrit 34.1 % (42.0-52.0); Hemoglobin 10.9 g/dL (14.1-18.0); Lymphocytes # 0.6 K/mm3 (0.7-4.5); Lymphocytes % 15.4 % (10-50); Mean Corpuscular HGB Conc 32.1 g/dL (31.8-35.4); Mean Corpuscular Hemoglobin 31.7 pg (27.0-31.2); Mean Corpuscular Volume 98.8 fl (80-94); Mean Platelet Volume 9.1 fl (7.4-10.4); Monocytes # 0.3 K/mm3 (0.1-1.0); Neutrophils # 2.8 K/mm3 (1.8-7.8); Neutrophils % 73.7 % (37.0-80.0); Platelet Count 192 K/mm3 (142-424); Red Blood Count 3.45 M/mm3 (4.60-6.20); Red Cell Distribution Width 14.5 % (11.5-17.5); White Blood Count 3.8 K/mm3 (4.8-10.8)
[2021-05-03 15:21] LABS: Appearance,Urine CLEAR (Clear); Bilirubin,Urine Negative (Negative); Blood, Urine Negative (Negative); Color,Urine STRAW (Yellow); Glucose,Urine (UA) Negative (Negative); Ketones,Urine Negative (Negative); Leukocyte Esterase,Urine Negative (Negative); Nitrate,Urine Negative (Negative); Protein,Urine Negative (Negative); Specific Gravity, Urine 1.025 (1.005-1.030); Urobilinogen,Urine 0.2 EU/dl (0.2)
[2021-05-03 15:38] LABS: Bacteria,Urine Trace /lpf; Squamous Epithelial Cell,Urine Occasional #/hpf (0-5); WBC,Urine Occasional #/hpf (0-3)
[2021-05-03 16:06] LABS: Albumin Level 4.6 g/dl (3.5-5.0); Anion Gap 12.5 mEq/L (5-15); Blood Urea Nitrogen 17 mg/dl (9-20); Calcium 9.1 mg/dl (8.4-10.2); Carbon Dioxide 25 mmol/L (22.0-30.0); Chloride 105 mmol/L (98-107); Estimated Glomerular Filt Rate 52 ml/min (>60); GFR (African American) 63 ML/MIN (>60); Glucose 135 mg/dl (74-100); Magnesium 1.6 mg/dl (1.6-2.3); Phosphorous 3.9 mg/dl (2.5-4.5); Potassium 4.5 mmoL/L (3.5-5.1); Sodium 138 mmol/L (136-145)
== END ==
PROVIDERS: Visit Provider Internal Medicine
DX: Z94.0 Kidney transplant status (principal)
CPT/HCPCS: 80069; 81001; 83735; 85025

== ENCOUNTER → 2021-05-16 08:00 | Outpatient (CLI) | payer OTHER, SELFPAY ==
[2021-05-16 08:11] LABS: Microscopic, Urine URINE MICROSCOPIC (MICROSCOPIC)
[2021-05-16 08:42] LABS: Appearance,Urine CLEAR (Clear); Bilirubin,Urine Negative (Negative); Blood, Urine TRACE-I (Negative); Color,Urine YELLOW (Yellow); Glucose,Urine (UA) Negative (Negative); Ketones,Urine Negative (Negative); Leukocyte Esterase,Urine Negative (Negative); Nitrate,Urine Negative (Negative); PH,Urine 5.5 (5.0-8.5); Protein,Urine Negative (Negative); Specific Gravity, Urine >= 1.030 (1.005-1.030); Urobilinogen,Urine 0.2 EU/dl (0.2)
[2021-05-16 08:47] LABS: Basophils % 0.6 % (0.1-2.0); Eosinophils # 0.2 K/mm3 (0.0-0.4); Eosinophils % 2.2 % (0.1-12.0); Hematocrit 35.8 % (42.0-52.0); Hemoglobin 11.6 g/dL (14.1-18.0); Lymphocytes # 0.8 K/mm3 (0.7-4.5); Lymphocytes % 11.2 % (10-50); Mean Corpuscular HGB Conc 32.3 g/dL (31.8-35.4); Mean Corpuscular Hemoglobin 31.6 pg (27.0-31.2); Mean Platelet Volume 9.6 fl (7.4-10.4); Monocytes # 0.5 K/mm3 (0.1-1.0); Monocytes % 6.5 % (1.7-9.3); Neutrophils # 5.6 K/mm3 (1.8-7.8); Neutrophils % 79.5 % (37.0-80.0); Platelet Count 199 K/mm3 (142-424); Red Blood Count 3.65 M/mm3 (4.60-6.20); Red Cell Distribution Width 14.5 % (11.5-17.5); White Blood Count 7.1 K/mm3 (4.8-10.8)
[2021-05-16 09:18] LABS: Chloride 106 mmol/L (98-107); Sodium 135 mmol/L (136-145)
[2021-05-16 09:19] LABS: Albumin Level 4.9 g/dl (3.5-5.0); Potassium 4.3 mmoL/L (3.5-5.1)
[2021-05-16 09:21] LABS: Anion Gap 11.3 mEq/L (5-15); Blood Urea Nitrogen 19 mg/dl (9-20); Carbon Dioxide 22 mmol/L (22.0-30.0); Estimated Glomerular Filt Rate 42 ml/min (>60); GFR (African American) 50 ML/MIN (>60); Phosphorous 2.7 mg/dl (2.5-4.5)
[2021-05-16 09:22] LABS: Calcium 9.1 mg/dl (8.4-10.2); Glucose 163 mg/dl (74-100); Magnesium 1.5 mg/dl (1.6-2.3)
[2021-05-16 09:58] LABS: Bacteria,Urine Trace /lpf; RBC,Urine Occasional #/hpf (0-3); Squamous Epithelial Cell,Urine Occasional #/hpf (0-5); WBC,Urine Occasional #/hpf (0-3)
== END ==
PROVIDERS: PCP Internal Medicine Adolescent Medicine; Visit Provider Internal Medicine
DX: Z94.0 Kidney transplant status (principal)
CPT/HCPCS: 36415; 80069; 80197; 81001; 83735; 85025

== ENCOUNTER → 2021-05-27 07:47 | Outpatient (CLI) | payer OTHER, SELFPAY ==
[2021-05-27 07:52] LABS: Microscopic, Urine URINE MICROSCOPIC (MICROSCOPIC)
[2021-05-27 08:15] LABS: Basophils # 0.1 K/mm3 (0-0.2); Eosinophils # 0.1 K/mm3 (0.0-0.4); Eosinophils % 2.3 % (0.1-12.0); Hematocrit 34.7 % (42.0-52.0); Hemoglobin 11.4 g/dL (14.1-18.0); Lymphocytes # 0.7 K/mm3 (0.7-4.5); Lymphocytes % 13.9 % (10-50); Mean Corpuscular HGB Conc 32.8 g/dL (31.8-35.4); Mean Corpuscular Hemoglobin 31.8 pg (27.0-31.2); Mean Corpuscular Volume 97.2 fl (80-94); Mean Platelet Volume 9.7 fl (7.4-10.4); Monocytes # 0.3 K/mm3 (0.1-1.0); Monocytes % 6.4 % (1.7-9.3); Neutrophils # 3.9 K/mm3 (1.8-7.8); Neutrophils % 76.3 % (37.0-80.0); Platelet Count 210 K/mm3 (142-424); Red Blood Count 3.57 M/mm3 (4.60-6.20); Red Cell Distribution Width 14.1 % (11.5-17.5); White Blood Count 5.1 K/mm3 (4.8-10.8)
[2021-05-27 08:18] LABS: Appearance,Urine CLEAR (Clear); Bilirubin,Urine Negative (Negative); Blood, Urine TRACE-I (Negative); Color,Urine YELLOW (Yellow); Glucose,Urine (UA) Negative (Negative); Ketones,Urine Negative (Negative); Leukocyte Esterase,Urine Negative (Negative); Nitrate,Urine Negative (Negative); Protein,Urine Negative (Negative); Urobilinogen,Urine 0.2 EU/dl (0.2)
[2021-05-27 08:40] LABS: Squamous Epithelial Cell,Urine Occasional #/hpf (0-5); WBC,Urine Occasional #/hpf (0-3)
[2021-05-27 10:45] LABS: Albumin Level 4.7 g/dl (3.5-5.0); Anion Gap 16.1 mEq/L (5-15); Blood Urea Nitrogen 18 mg/dl (9-20); Carbon Dioxide 22 mmol/L (22.0-30.0); Chloride 107 mmol/L (98-107); Estimated Glomerular Filt Rate 48 ml/min (>60); GFR (African American) 58 ML/MIN (>60); Glucose 161 mg/dl (74-100); Magnesium 1.4 mg/dl (1.6-2.3); Phosphorous 2.7 mg/dl (2.5-4.5); Potassium 4.1 mmoL/L (3.5-5.1); Sodium 141 mmol/L (136-145)
== END ==
PROVIDERS: PCP Internal Medicine Adolescent Medicine
DX: Z94.0 Kidney transplant status (principal)
CPT/HCPCS: 36415; 80069; 81001; 83735; 85025

== ENCOUNTER → 2021-06-06 08:04 | Outpatient (CLI) | payer OTHER, SELFPAY ==
[2021-06-06 08:17] LABS: Microscopic, Urine URINE MICROSCOPIC (MICROSCOPIC)
[2021-06-06 08:47] LABS: Appearance,Urine CLEAR (Clear); Bilirubin,Urine Negative (Negative); Blood, Urine Negative (Negative); Color,Urine YELLOW (Yellow); Glucose,Urine (UA) Negative (Negative); Ketones,Urine Negative (Negative); Leukocyte Esterase,Urine Negative (Negative); Nitrate,Urine Negative (Negative); Protein,Urine Negative (Negative); Urobilinogen,Urine 0.2 EU/dl (0.2)
[2021-06-06 08:50] LABS: Basophils % 0.7 % (0.1-2.0); Eosinophils # 0.1 K/mm3 (0.0-0.4); Eosinophils % 2.5 % (0.1-12.0); Hematocrit 30.2 % (42.0-52.0); Hemoglobin 10.4 g/dL (14.1-18.0); Lymphocytes # 0.5 K/mm3 (0.7-4.5); Mean Corpuscular HGB Conc 34.4 g/dL (31.8-35.4); Mean Corpuscular Hemoglobin 31.9 pg (27.0-31.2); Mean Corpuscular Volume 92.7 fl (80-94); Monocytes # 0.4 K/mm3 (0.1-1.0); Monocytes % 8.4 % (1.7-9.3); Neutrophils # 3.2 K/mm3 (1.8-7.8); Neutrophils % 76.4 % (37.0-80.0); Platelet Count 174 K/mm3 (142-424); Red Blood Count 3.25 M/mm3 (4.60-6.20); Red Cell Distribution Width 13.3 % (11.5-17.5); White Blood Count 4.2 K/mm3 (4.8-10.8)
[2021-06-06 09:11] LABS: Bacteria,Urine Trace /lpf; Squamous Epithelial Cell,Urine Occasional #/hpf (0-5); WBC,Urine Occasional #/hpf (0-3)
[2021-06-06 09:40] LABS: Chloride 106 mmol/L (98-107)
[2021-06-06 09:41] LABS: Albumin Level 4.5 g/dl (3.5-5.0); Potassium 3.9 mmoL/L (3.5-5.1); Sodium 136 mmol/L (136-145)
[2021-06-06 09:43] LABS: Blood Urea Nitrogen 18 mg/dl (9-20); Estimated Glomerular Filt Rate 45 ml/min (>60); GFR (African American) 54 ML/MIN (>60)
[2021-06-06 09:44] LABS: Anion Gap 11.9 mEq/L (5-15); Calcium 8.1 mg/dl (8.4-10.2); Carbon Dioxide 22 mmol/L (22.0-30.0); Glucose 132 mg/dl (74-100); Magnesium 1.5 mg/dl (1.6-2.3); Phosphorous 2.8 mg/dl (2.5-4.5)
== END ==
PROVIDERS: Visit Provider Internal Medicine
DX: Z94.0 Kidney transplant status (principal)
CPT/HCPCS: 36415; 80069; 81001; 83735; 85025

== ENCOUNTER → 2021-06-13 08:09 | Outpatient (CLI) | payer OTHER, SELFPAY ==
[2021-06-13 08:15] LABS: Microscopic, Urine URINE MICROSCOPIC (MICROSCOPIC)
[2021-06-13 08:45] LABS: Appearance,Urine CLEAR (Clear); Bilirubin,Urine Negative (Negative); Blood, Urine Negative (Negative); Color,Urine YELLOW (Yellow); Glucose,Urine (UA) Negative (Negative); Ketones,Urine Negative (Negative); Leukocyte Esterase,Urine Negative (Negative); Nitrate,Urine Negative (Negative); Protein,Urine Negative (Negative); Urobilinogen,Urine 0.2 EU/dl (0.2)
[2021-06-13 08:53] LABS: Basophils % 1.1 % (0.1-2.0); Eosinophils # 0.1 K/mm3 (0.0-0.4); Hematocrit 31.5 % (42.0-52.0); Hemoglobin 9.9 g/dL (14.1-18.0); Lymphocytes # 0.5 K/mm3 (0.7-4.5); Lymphocytes % 11.9 % (10-50); Mean Corpuscular HGB Conc 31.4 g/dL (31.8-35.4); Mean Corpuscular Hemoglobin 30.8 pg (27.0-31.2); Mean Corpuscular Volume 98.2 fl (80-94); Mean Platelet Volume 9.4 fl (7.4-10.4); Monocytes # 0.3 K/mm3 (0.1-1.0); Monocytes % 8.2 % (1.7-9.3); Neutrophils # 3.2 K/mm3 (1.8-7.8); Neutrophils % 76.8 % (37.0-80.0); Platelet Count 201 K/mm3 (142-424); Red Blood Count 3.21 M/mm3 (4.60-6.20); Red Cell Distribution Width 13.7 % (11.5-17.5); White Blood Count 4.1 K/mm3 (4.8-10.8)
[2021-06-13 09:30] LABS: WBC,Urine Occasional #/hpf (0-3); White Blood Cell Casts,Urine Occasional #/lpf (0)
[2021-06-13 09:31] LABS: Squamous Epithelial Cell,Urine Occasional #/hpf (0-5)
[2021-06-13 10:35] LABS: Chloride 104 mmol/L (98-107); Potassium 3.8 mmoL/L (3.5-5.1); Sodium 135 mmol/L (136-145)
[2021-06-13 10:36] LABS: Albumin Level 4.5 g/dl (3.5-5.0)
[2021-06-13 10:38] LABS: Anion Gap 13.8 mEq/L (5-15); Blood Urea Nitrogen 16 mg/dl (9-20); Carbon Dioxide 21 mmol/L (22.0-30.0); Estimated Glomerular Filt Rate 42 ml/min (>60); GFR (African American) 50 ML/MIN (>60); Glucose 151 mg/dl (74-100); Magnesium 1.4 mg/dl (1.6-2.3); Phosphorous 2.3 mg/dl (2.5-4.5)
== END ==
PROVIDERS: Visit Provider Internal Medicine
DX: Z94.0 Kidney transplant status (principal)
CPT/HCPCS: 36415; 80069; 81001; 83735; 85025

== ENCOUNTER → 2021-06-26 08:22 | Outpatient (CLI) | payer OTHER, SELFPAY ==
[2021-06-26 08:32] LABS: Microscopic, Urine URINE MICROSCOPIC (MICROSCOPIC)
[2021-06-26 09:08] LABS: Appearance,Urine CLEAR (Clear); Bilirubin,Urine Negative (Negative); Blood, Urine Negative (Negative); Color,Urine YELLOW (Yellow); Glucose,Urine (UA) Negative (Negative); Ketones,Urine Negative (Negative); Leukocyte Esterase,Urine Negative (Negative); Nitrate,Urine Negative (Negative); Protein,Urine Negative (Negative); Specific Gravity, Urine 1.015 (1.005-1.030); Urobilinogen,Urine 0.2 EU/dl (0.2)
[2021-06-26 09:15] LABS: Basophils % 0.8 % (0.1-2.0); Eosinophils # 0.1 K/mm3 (0.0-0.4); Eosinophils % 2.6 % (0.1-12.0); Hematocrit 30.3 % (42.0-52.0); Hemoglobin 9.8 g/dL (14.1-18.0); Lymphocytes # 0.5 K/mm3 (0.7-4.5); Lymphocytes % 12.2 % (10-50); Mean Corpuscular HGB Conc 32.2 g/dL (31.8-35.4); Mean Corpuscular Hemoglobin 31.4 pg (27.0-31.2); Mean Corpuscular Volume 97.4 fl (80-94); Mean Platelet Volume 9.5 fl (7.4-10.4); Monocytes # 0.4 K/mm3 (0.1-1.0); Monocytes % 10.4 % (1.7-9.3); Neutrophils # 3.1 K/mm3 (1.8-7.8); Neutrophils % 74.1 % (37.0-80.0); Platelet Count 209 K/mm3 (142-424); Red Blood Count 3.11 M/mm3 (4.60-6.20); Red Cell Distribution Width 13.4 % (11.5-17.5); White Blood Count 4.2 K/mm3 (4.8-10.8)
[2021-06-26 09:23] LABS: Albumin Level 4.4 g/dl (3.5-5.0); Anion Gap 10.3 mEq/L (5-15); Blood Urea Nitrogen 19 mg/dl (9-20); Calcium 8.6 mg/dl (8.4-10.2); Carbon Dioxide 22 mmol/L (22.0-30.0); Chloride 110 mmol/L (98-107); Estimated Glomerular Filt Rate 39 ml/min (>60); GFR (African American) 47 ML/MIN (>60); Glucose 120 mg/dl (74-100); Magnesium 1.5 mg/dl (1.6-2.3); Phosphorous 2.7 mg/dl (2.5-4.5); Potassium 4.3 mmoL/L (3.5-5.1); Sodium 138 mmol/L (136-145)
[2021-06-26 09:25] LABS: Amorphous Sediment,Urine 1+ /lpf
== END ==
PROVIDERS: Visit Provider Internal Medicine
DX: Z94.0 Kidney transplant status (principal)
CPT/HCPCS: 36415; 80069; 81001; 83735; 85025

== ENCOUNTER → 2021-07-09 08:07 | Outpatient (CLI) | payer OTHER, SELFPAY ==
[2021-07-09 08:14] LABS: Microscopic, Urine URINE MICROSCOPIC (MICROSCOPIC)
[2021-07-09 08:32] LABS: Eosinophils # 0.1 K/mm3 (0.0-0.4); Eosinophils % 2.2 % (0.1-12.0); Hematocrit 30.5 % (42.0-52.0); Hemoglobin 9.9 g/dL (14.1-18.0); Lymphocytes # 0.6 K/mm3 (0.7-4.5); Lymphocytes % 15.9 % (10-50); Mean Corpuscular HGB Conc 32.3 g/dL (31.8-35.4); Mean Corpuscular Hemoglobin 30.8 pg (27.0-31.2); Mean Corpuscular Volume 95.5 fl (80-94); Mean Platelet Volume 9.4 fl (7.4-10.4); Monocytes # 0.3 K/mm3 (0.1-1.0); Monocytes % 8.1 % (1.7-9.3); Neutrophils # 2.9 K/mm3 (1.8-7.8); Neutrophils % 72.8 % (37.0-80.0); Platelet Count 215 K/mm3 (142-424); Red Cell Distribution Width 13.6 % (11.5-17.5)
[2021-07-09 09:26] LABS: Albumin Level 4.3 g/dl (3.5-5.0); Anion Gap 11.8 mEq/L (5-15); Blood Urea Nitrogen 18 mg/dl (9-20); Calcium 8.6 mg/dl (8.4-10.2); Carbon Dioxide 21 mmol/L (22.0-30.0); Chloride 111 mmol/L (98-107); Estimated Glomerular Filt Rate 42 ml/min (>60); GFR (African American) 50 ML/MIN (>60); Glucose 140 mg/dl (74-100); Magnesium 1.5 mg/dl (1.6-2.3); Phosphorous 2.8 mg/dl (2.5-4.5); Potassium 3.8 mmoL/L (3.5-5.1); Sodium 140 mmol/L (136-145)
[2021-07-09 10:03] LABS: Appearance,Urine CLEAR (Clear); Bilirubin,Urine Negative (Negative); Blood, Urine Negative (Negative); Color,Urine YELLOW (Yellow); Glucose,Urine (UA) Negative (Negative); Ketones,Urine Negative (Negative); Leukocyte Esterase,Urine Negative (Negative); Nitrate,Urine Negative (Negative); Protein,Urine Negative (Negative); Urobilinogen,Urine 0.2 EU/dl (0.2)
[2021-07-09 10:58] LABS: Squamous Epithelial Cell,Urine Occasional #/hpf (0-5)
== END ==
PROVIDERS: Visit Provider Internal Medicine
DX: Z94.0 Kidney transplant status (principal)
CPT/HCPCS: 36415; 80069; 81001; 83735; 85025

== ENCOUNTER → 2021-07-24 08:03 | Outpatient (CLI) | payer OTHER, SELFPAY ==
[2021-07-24 08:11] LABS: Microscopic, Urine URINE MICROSCOPIC (MICROSCOPIC)
[2021-07-24 08:29] LABS: Appearance,Urine CLEAR (Clear); Bilirubin,Urine Negative (Negative); Blood, Urine Negative (Negative); Color,Urine YELLOW (Yellow); Glucose,Urine (UA) Negative (Negative); Ketones,Urine Negative (Negative); Leukocyte Esterase,Urine Negative (Negative); Nitrate,Urine Negative (Negative); Protein,Urine Negative (Negative); Urobilinogen,Urine 0.2 EU/dl (0.2)
[2021-07-24 08:36] LABS: Basophils # 0.1 K/mm3 (0-0.2); Eosinophils # 0.1 K/mm3 (0.0-0.4); Eosinophils % 2.8 % (0.1-12.0); Hematocrit 31.1 % (42.0-52.0); Hemoglobin 10.2 g/dL (14.1-18.0); Lymphocytes # 0.8 K/mm3 (0.7-4.5); Lymphocytes % 16.4 % (10-50); Mean Corpuscular HGB Conc 32.9 g/dL (31.8-35.4); Mean Corpuscular Hemoglobin 31.1 pg (27.0-31.2); Mean Corpuscular Volume 94.5 fl (80-94); Mean Platelet Volume 9.6 fl (7.4-10.4); Monocytes # 0.4 K/mm3 (0.1-1.0); Monocytes % 8.3 % (1.7-9.3); Neutrophils # 3.3 K/mm3 (1.8-7.8); Neutrophils % 71.5 % (37.0-80.0); Platelet Count 201 K/mm3 (142-424); Red Blood Count 3.29 M/mm3 (4.60-6.20); Red Cell Distribution Width 13.4 % (11.5-17.5); White Blood Count 4.7 K/mm3 (4.8-10.8)
[2021-07-24 09:06] LABS: Squamous Epithelial Cell,Urine Occasional #/hpf (0-5); WBC,Urine Occasional #/hpf (0-3)
[2021-07-24 09:10] LABS: Albumin Level 4.2 g/dl (3.5-5.0); Chloride 110 mmol/L (98-107); Potassium 4.1 mmoL/L (3.5-5.1); Sodium 139 mmol/L (136-145)
[2021-07-24 09:12] LABS: Blood Urea Nitrogen 22 mg/dl (9-20); Estimated Glomerular Filt Rate 39 ml/min (>60); GFR (African American) 47 ML/MIN (>60)
[2021-07-24 09:13] LABS: Anion Gap 11.1 mEq/L (5-15); Calcium 8.2 mg/dl (8.4-10.2); Carbon Dioxide 22 mmol/L (22.0-30.0); Glucose 161 mg/dl (74-100); Magnesium 1.6 mg/dl (1.6-2.3); Phosphorous 2.7 mg/dl (2.5-4.5)
== END ==
PROVIDERS: Visit Provider Internal Medicine
DX: Z94.0 Kidney transplant status (principal)
CPT/HCPCS: 36415; 80069; 81001; 83735; 85025

== ENCOUNTER → 2021-08-01 08:14 | Outpatient (CLI) | payer OTHER, SELFPAY ==
[2021-08-01 08:23] LABS: Microscopic, Urine URINE MICROSCOPIC (MICROSCOPIC)
[2021-08-01 08:44] LABS: Basophils % 0.8 % (0.1-2.0); Eosinophils # 0.2 K/mm3 (0.0-0.4); Eosinophils % 3.6 % (0.1-12.0); Hematocrit 30.7 % (42.0-52.0); Lymphocytes # 0.8 K/mm3 (0.7-4.5); Lymphocytes % 17.8 % (10-50); Mean Corpuscular HGB Conc 32.5 g/dL (31.8-35.4); Mean Corpuscular Hemoglobin 31.9 pg (27.0-31.2); Mean Corpuscular Volume 98.1 fl (80-94); Monocytes # 0.3 K/mm3 (0.1-1.0); Monocytes % 7.5 % (1.7-9.3); Neutrophils # 3.1 K/mm3 (1.8-7.8); Neutrophils % 70.4 % (37.0-80.0); Platelet Count 201 K/mm3 (142-424); Red Blood Count 3.13 M/mm3 (4.60-6.20); Red Cell Distribution Width 13.8 % (11.5-17.5); White Blood Count 4.5 K/mm3 (4.8-10.8)
[2021-08-01 08:48] LABS: Appearance,Urine CLEAR (Clear); Bilirubin,Urine Negative (Negative); Blood, Urine Negative (Negative); Color,Urine YELLOW (Yellow); Glucose,Urine (UA) Negative (Negative); Ketones,Urine Negative (Negative); Leukocyte Esterase,Urine Negative (Negative); Nitrate,Urine Negative (Negative); Protein,Urine Negative (Negative); Urobilinogen,Urine 0.2 EU/dl (0.2)
[2021-08-01 09:34] LABS: Albumin Level 4.1 g/dl (3.5-5.0); Chloride 111 mmol/L (98-107); Potassium 4.1 mmoL/L (3.5-5.1); Sodium 139 mmol/L (136-145)
[2021-08-01 09:37] LABS: Anion Gap 12.1 mEq/L (5-15); Blood Urea Nitrogen 22 mg/dl (9-20); Calcium 8.1 mg/dl (8.4-10.2); Carbon Dioxide 20 mmol/L (22.0-30.0); Estimated Glomerular Filt Rate 37 ml/min (>60); GFR (African American) 44 ML/MIN (>60); Glucose 118 mg/dl (74-100); Magnesium 1.7 mg/dl (1.6-2.3)
[2021-08-01 09:39] LABS: Squamous Epithelial Cell,Urine Occasional #/hpf (0-5); WBC,Urine Occasional #/hpf (0-3)
== END ==
PROVIDERS: Visit Provider Internal Medicine
DX: Z94.0 Kidney transplant status (principal)
CPT/HCPCS: 36415; 80069; 81001; 83735; 85025

== ENCOUNTER 2021-08-07 08:25 | Outpatient (CLI) | payer OTHER, SELFPAY ==
[2021-08-07] VITALS (7 sets, daily range): BP systolic 125–151; BP diastolic 68–74; PULSE 53–63; RESP 16; TEMP 36.4–36.5; O2SAT 98–100; BMI 25.9
[2021-08-07 09:00] LABS: Microscopic, Urine URINE MICROSCOPIC (MICROSCOPIC)
[2021-08-07 09:06] LABS: Basophils # 0.1 K/mm3 (0-0.2); Eosinophils # 0.1 K/mm3 (0.0-0.4); Hematocrit 29.9 % (42.0-52.0); Hemoglobin 9.9 g/dL (14.1-18.0); Lymphocytes # 0.8 K/mm3 (0.7-4.5); Lymphocytes % 16.5 % (10-50); Mean Corpuscular HGB Conc 33.1 g/dL (31.8-35.4); Mean Corpuscular Volume 90.8 fl (80-94); Mean Platelet Volume 8.9 fl (7.4-10.4); Monocytes # 0.3 K/mm3 (0.1-1.0); Monocytes % 6.3 % (1.7-9.3); Neutrophils # 3.5 K/mm3 (1.8-7.8); Neutrophils % 74.3 % (37.0-80.0); Platelet Count 197 K/mm3 (142-424); Red Blood Count 3.29 M/mm3 (4.60-6.20); Red Cell Distribution Width 12.9 % (11.5-17.5); White Blood Count 4.7 K/mm3 (4.8-10.8)
[2021-08-07 09:08] LABS: Appearance,Urine CLEAR (Clear); Bilirubin,Urine Negative (Negative); Blood, Urine TRACE-I (Negative); Color,Urine YELLOW (Yellow); Glucose,Urine (UA) Negative (Negative); Ketones,Urine Negative (Negative); Leukocyte Esterase,Urine Negative (Negative); Nitrate,Urine Negative (Negative); PH,Urine 5.5 (5.0-8.5); Protein,Urine Negative (Negative); Urobilinogen,Urine 0.2 EU/dl (0.2)
[2021-08-07 09:09] LABS: Albumin Level 4.3 g/dl (3.5-5.0); Chloride 109 mmol/L (98-107); Potassium 3.7 mmoL/L (3.5-5.1); Sodium 140 mmol/L (136-145)
[2021-08-07 09:12] LABS: Anion Gap 11.7 mEq/L (5-15); Blood Urea Nitrogen 18 mg/dl (9-20); Carbon Dioxide 23 mmol/L (22.0-30.0); Creatinine Clearance Estimated 58 mL/min (50-200); Estimated Glomerular Filt Rate 39 ml/min (>60); GFR (African American) 47 ML/MIN (>60); Phosphorous 2.7 mg/dl (2.5-4.5)
[2021-08-07 09:13] LABS: Calcium 8.7 mg/dl (8.4-10.2); Glucose 181 mg/dl (74-100); Magnesium 1.8 mg/dl (1.6-2.3)
[2021-08-07 09:31] LABS: Bacteria,Urine Trace /lpf; RBC,Urine Occasional #/hpf (0-3); Squamous Epithelial Cell,Urine Occasional #/hpf (0-5)
== END 2021-08-07 11:15 | disposition home or self-care (01) ==
LOC: INF 08:26
PROVIDERS: PCP Internal Medicine Adolescent Medicine; Visit Provider Internal Medicine
DX: Z94.0 Kidney transplant status (principal); Z79.899 Other long term (current) drug therapy
CPT/HCPCS: 80069; 81001; 83735; 85025; 96365; J1459

== ENCOUNTER 2021-08-14 08:26 | Outpatient (CLI) | payer OTHER, SELFPAY ==
[2021-08-14 08:45] VITALS: BP 124/62; PULSE 82; RESP 18; TEMP 36.4; O2SAT 98
[2021-08-14 09:14] VITALS: BP 120/68; PULSE 84; RESP 18; O2SAT 98
[2021-08-14 09:45] VITALS: BP 121/62; PULSE 83; RESP 18; O2SAT 97
[2021-08-14 10:15] VITALS: BP 119/67; PULSE 82; RESP 18; O2SAT 97
[2021-08-14 10:50] VITALS: BP 126/68; PULSE 79; RESP 18; O2SAT 98
== END 2021-08-14 10:55 | disposition home or self-care (01) ==
LOC: INF 08:26
PROVIDERS: PCP Internal Medicine Adolescent Medicine
DX: Z94.0 Kidney transplant status (principal); B34.8 Other viral infections of unspecified site
CPT/HCPCS: 96365; J1459

== ENCOUNTER → 2021-08-28 07:55 | Outpatient (CLI) | payer OTHER, SELFPAY ==
[2021-08-28 08:02] LABS: Microscopic, Urine URINE MICROSCOPIC (MICROSCOPIC)
[2021-08-28 08:18] LABS: Appearance,Urine CLEAR (Clear); Basophils # 0.1 K/mm3 (0-0.2); Basophils % 1.6 % (0.1-2.0); Bilirubin,Urine Negative (Negative); Blood, Urine Negative (Negative); Color,Urine YELLOW (Yellow); Eosinophils # 0.1 K/mm3 (0.0-0.4); Eosinophils % 1.4 % (0.1-12.0); Glucose,Urine (UA) Negative (Negative); Hematocrit 32.3 % (42.0-52.0); Hemoglobin 10.7 g/dL (14.1-18.0); Ketones,Urine Negative (Negative); Leukocyte Esterase,Urine Negative (Negative); Lymphocytes # 0.8 K/mm3 (0.7-4.5); Lymphocytes % 15.7 % (10-50); Mean Corpuscular HGB Conc 33.1 g/dL (31.8-35.4); Mean Corpuscular Hemoglobin 31.1 pg (27.0-31.2); Mean Platelet Volume 10.6 fl (7.4-10.4); Monocytes # 0.4 K/mm3 (0.1-1.0); Monocytes % 7.1 % (1.7-9.3); Neutrophils # 3.9 K/mm3 (1.8-7.8); Neutrophils % 74.2 % (37.0-80.0); Nitrate,Urine Negative (Negative); PH,Urine 5.5 (5.0-8.5); Platelet Count 203 K/mm3 (142-424); Protein,Urine Negative (Negative); Red Blood Count 3.44 M/mm3 (4.60-6.20); Red Cell Distribution Width 13.7 % (11.5-17.5); Urobilinogen,Urine 0.2 EU/dl (0.2); White Blood Count 5.2 K/mm3 (4.8-10.8)
[2021-08-28 08:41] LABS: RBC,Urine Occasional #/hpf (0-3); Squamous Epithelial Cell,Urine Occasional #/hpf (0-5)
[2021-08-28 08:57] LABS: Albumin Level 4.3 g/dl (3.5-5.0); Anion Gap 12.9 mEq/L (5-15); Blood Urea Nitrogen 23 mg/dl (9-20); Calcium 8.8 mg/dl (8.4-10.2); Carbon Dioxide 20 mmol/L (22.0-30.0); Chloride 109 mmol/L (98-107); Estimated Glomerular Filt Rate 42 ml/min (>60); GFR (African American) 50 ML/MIN (>60); Glucose 155 mg/dl (74-100); Magnesium 1.7 mg/dl (1.6-2.3); Phosphorous 2.8 mg/dl (2.5-4.5); Potassium 3.9 mmoL/L (3.5-5.1); Sodium 138 mmol/L (136-145)
== END ==
PROVIDERS: PCP Internal Medicine Adolescent Medicine; Visit Provider Internal Medicine
DX: Z94.0 Kidney transplant status (principal)
CPT/HCPCS: 36415; 80069; 81001; 83735; 85025

== ENCOUNTER → 2021-09-25 08:20 | Outpatient (CLI) | payer OTHER, SELFPAY ==
[2021-09-25 08:33] LABS: Microscopic, Urine URINE MICROSCOPIC (MICROSCOPIC)
[2021-09-25 08:49] LABS: Basophils # 0.1 K/mm3 (0-0.2); Basophils % 1.3 % (0.1-2.0); Eosinophils # 0.1 K/mm3 (0.0-0.4); Eosinophils % 2.3 % (0.1-12.0); Hematocrit 31.5 % (42.0-52.0); Hemoglobin 10.8 g/dL (14.1-18.0); Lymphocytes # 0.8 K/mm3 (0.7-4.5); Lymphocytes % 14.8 % (10-50); Mean Corpuscular HGB Conc 34.2 g/dL (31.8-35.4); Mean Corpuscular Hemoglobin 31.3 pg (27.0-31.2); Mean Corpuscular Volume 91.6 fl (80-94); Mean Platelet Volume 9.7 fl (7.4-10.4); Monocytes # 0.4 K/mm3 (0.1-1.0); Monocytes % 7.8 % (1.7-9.3); Neutrophils % 73.9 % (37.0-80.0); Platelet Count 185 K/mm3 (142-424); Red Blood Count 3.44 M/mm3 (4.60-6.20); Red Cell Distribution Width 13.6 % (11.5-17.5); White Blood Count 5.5 K/mm3 (4.8-10.8)
[2021-09-25 08:52] LABS: Appearance,Urine CLEAR (Clear); Bilirubin,Urine Negative (Negative); Blood, Urine Negative (Negative); Color,Urine YELLOW (Yellow); Glucose,Urine (UA) Negative (Negative); Ketones,Urine Negative (Negative); Leukocyte Esterase,Urine Negative (Negative); Nitrate,Urine Negative (Negative); Protein,Urine Negative (Negative); Specific Gravity, Urine 1.015 (1.005-1.030); Urobilinogen,Urine 0.2 EU/dl (0.2)
[2021-09-25 09:24] LABS: WBC,Urine Occasional #/hpf (0-3)
[2021-09-25 09:25] LABS: Bacteria,Urine Trace /lpf
[2021-09-25 09:34] LABS: Albumin Level 4.3 g/dl (3.5-5.0); Chloride 108 mmol/L (98-107); Potassium 3.5 mmoL/L (3.5-5.1); Sodium 139 mmol/L (136-145)
[2021-09-25 09:37] LABS: Anion Gap 12.5 mEq/L (5-15); Blood Urea Nitrogen 19 mg/dl (9-20); Calcium 8.8 mg/dl (8.4-10.2); Carbon Dioxide 22 mmol/L (22.0-30.0); Estimated Glomerular Filt Rate 39 ml/min (>60); GFR (African American) 47 ML/MIN (>60); Glucose 158 mg/dl (74-100); Magnesium 1.6 mg/dl (1.6-2.3); Phosphorous 2.6 mg/dl (2.5-4.5)
== END ==
PROVIDERS: PCP Internal Medicine Adolescent Medicine; Visit Provider Internal Medicine
DX: Z94.0 Kidney transplant status (principal)
CPT/HCPCS: 36415; 80069; 81001; 83735; 85025

== ENCOUNTER → 2021-10-09 08:19 | Outpatient (CLI) | payer OTHER, SELFPAY ==
[2021-10-09 08:26] LABS: Microscopic, Urine URINE MICROSCOPIC (MICROSCOPIC)
[2021-10-09 09:25] LABS: Appearance,Urine CLEAR (Clear); Basophils % 0.3 % (0.1-2.0); Bilirubin,Urine Negative (Negative); Blood, Urine Negative (Negative); Color,Urine YELLOW (Yellow); Eosinophils # 0.1 K/mm3 (0.0-0.4); Glucose,Urine (UA) Negative (Negative); Hematocrit 32.9 % (42.0-52.0); Hemoglobin 10.8 g/dL (14.1-18.0); Ketones,Urine Negative (Negative); Leukocyte Esterase,Urine Negative (Negative); Lymphocytes # 0.8 K/mm3 (0.7-4.5); Lymphocytes % 10.8 % (10-50); Mean Corpuscular HGB Conc 32.7 g/dL (31.8-35.4); Mean Corpuscular Hemoglobin 29.6 pg (27.0-31.2); Mean Corpuscular Volume 90.4 fl (80-94); Mean Platelet Volume 8.7 fl (7.4-10.4); Monocytes # 0.5 K/mm3 (0.1-1.0); Monocytes % 6.7 % (1.7-9.3); Neutrophils # 5.9 K/mm3 (1.8-7.8); Neutrophils % 81.3 % (37.0-80.0); Nitrate,Urine Negative (Negative); Platelet Count 186 K/mm3 (142-424); Protein,Urine Negative (Negative); Red Blood Count 3.64 M/mm3 (4.60-6.20); Specific Gravity, Urine 1.015 (1.005-1.030); Urobilinogen,Urine 0.2 EU/dl (0.2); White Blood Count 7.3 K/mm3 (4.8-10.8)
[2021-10-09 09:38] LABS: Bacteria,Urine Trace /lpf
[2021-10-09 09:50] LABS: Albumin Level 4.3 g/dl (3.5-5.0); Anion Gap 12.9 mEq/L (5-15); Blood Urea Nitrogen 16 mg/dl (9-20); Calcium 8.8 mg/dl (8.4-10.2); Carbon Dioxide 22 mmol/L (22.0-30.0); Chloride 109 mmol/L (98-107); Estimated Glomerular Filt Rate 44 ml/min (>60); GFR (African American) 54 ML/MIN (>60); Glucose 126 mg/dl (74-100); Magnesium 1.6 mg/dl (1.6-2.3); Phosphorous 2.5 mg/dl (2.5-4.5); Potassium 3.9 mmoL/L (3.5-5.1); Sodium 140 mmol/L (136-145)
== END ==
PROVIDERS: PCP Internal Medicine Adolescent Medicine; Visit Provider Internal Medicine
DX: Z94.0 Kidney transplant status (principal)
CPT/HCPCS: 36415; 80069; 81001; 83735; 85025

== ENCOUNTER → 2021-10-24 08:26 | Outpatient (CLI) | payer OTHER, SELFPAY ==
[2021-10-24 08:37] LABS: Microscopic, Urine URINE MICROSCOPIC (MICROSCOPIC)
[2021-10-24 08:58] LABS: Appearance,Urine CLEAR (Clear); Bilirubin,Urine Negative (Negative); Blood, Urine Negative (Negative); Color,Urine YELLOW (Yellow); Glucose,Urine (UA) Negative (Negative); Ketones,Urine Negative (Negative); Leukocyte Esterase,Urine Negative (Negative); Nitrate,Urine Negative (Negative); Protein,Urine Negative (Negative); Specific Gravity, Urine 1.015 (1.005-1.030); Urobilinogen,Urine 0.2 EU/dl (0.2)
[2021-10-24 09:03] LABS: Basophils % 0.5 % (0.1-2.0); Eosinophils # 0.1 K/mm3 (0.0-0.4); Eosinophils % 1.9 % (0.1-12.0); Hematocrit 32.5 % (42.0-52.0); Hemoglobin 10.3 g/dL (14.1-18.0); Lymphocytes # 0.7 K/mm3 (0.7-4.5); Lymphocytes % 13.7 % (10-50); Mean Corpuscular HGB Conc 31.7 g/dL (31.8-35.4); Mean Corpuscular Hemoglobin 30.2 pg (27.0-31.2); Mean Corpuscular Volume 95.2 fl (80-94); Mean Platelet Volume 9.2 fl (7.4-10.4); Monocytes # 0.4 K/mm3 (0.1-1.0); Monocytes % 7.9 % (1.7-9.3); Neutrophils # 4.1 K/mm3 (1.8-7.8); Neutrophils % 76.1 % (37.0-80.0); Platelet Count 192 K/mm3 (142-424); Red Blood Count 3.42 M/mm3 (4.60-6.20); Red Cell Distribution Width 13.7 % (11.5-17.5); White Blood Count 5.4 K/mm3 (4.8-10.8)
[2021-10-24 09:14] LABS: Bacteria,Urine Trace /lpf; Squamous Epithelial Cell,Urine Occasional #/hpf (0-5); WBC,Urine Occasional #/hpf (0-3)
[2021-10-24 09:43] LABS: Albumin Level 4.1 g/dl (3.5-5.0); Anion Gap 13.6 mEq/L (5-15); Blood Urea Nitrogen 16 mg/dl (9-20); Calcium 8.7 mg/dl (8.4-10.2); Carbon Dioxide 21 mmol/L (22.0-30.0); Chloride 108 mmol/L (98-107); Estimated Glomerular Filt Rate 39 ml/min (>60); GFR (African American) 47 ML/MIN (>60); Glucose 159 mg/dl (74-100); Magnesium 1.7 mg/dl (1.6-2.3); Phosphorous 2.5 mg/dl (2.5-4.5); Potassium 3.6 mmoL/L (3.5-5.1); Sodium 139 mmol/L (136-145)
== END ==
PROVIDERS: PCP Internal Medicine Adolescent Medicine; Visit Provider Internal Medicine
DX: Z94.0 Kidney transplant status (principal)
CPT/HCPCS: 36415; 80069; 81001; 83735; 85025

== ENCOUNTER → 2021-11-07 07:57 | Outpatient (CLI) | payer OTHER, SELFPAY ==
[2021-11-07 08:03] LABS: Microscopic, Urine URINE MICROSCOPIC (MICROSCOPIC)
[2021-11-07 08:27] LABS: Basophils # 0.1 K/mm3 (0-0.2); Basophils % 0.9 % (0.1-2.0); Eosinophils # 0.1 K/mm3 (0.0-0.4); Eosinophils % 1.9 % (0.1-12.0); Hematocrit 31.1 % (42.0-52.0); Hemoglobin 9.9 g/dL (14.1-18.0); Lymphocytes # 0.8 K/mm3 (0.7-4.5); Lymphocytes % 13.3 % (10-50); Mean Corpuscular Hemoglobin 30.3 pg (27.0-31.2); Mean Corpuscular Volume 94.8 fl (80-94); Mean Platelet Volume 9.3 fl (7.4-10.4); Monocytes # 0.5 K/mm3 (0.1-1.0); Monocytes % 8.4 % (1.7-9.3); Neutrophils # 4.4 K/mm3 (1.8-7.8); Neutrophils % 75.5 % (37.0-80.0); Platelet Count 199 K/mm3 (142-424); Red Blood Count 3.28 M/mm3 (4.60-6.20); Red Cell Distribution Width 13.5 % (11.5-17.5); White Blood Count 5.9 K/mm3 (4.8-10.8)
[2021-11-07 08:29] LABS: Appearance,Urine CLEAR (Clear); Bilirubin,Urine Negative (Negative); Blood, Urine Negative (Negative); Color,Urine YELLOW (Yellow); Glucose,Urine (UA) Negative (Negative); Ketones,Urine Negative (Negative); Leukocyte Esterase,Urine Negative (Negative); Nitrate,Urine Negative (Negative); Protein,Urine Negative (Negative); Urobilinogen,Urine 0.2 EU/dl (0.2)
[2021-11-07 09:08] LABS: Bacteria,Urine Trace /lpf; Squamous Epithelial Cell,Urine Occasional #/hpf (0-5)
[2021-11-07 09:10] LABS: Potassium 3.6 mmoL/L (3.5-5.1); Sodium 140 mmol/L (136-145)
[2021-11-07 09:11] LABS: Albumin Level 4.2 g/dl (3.5-5.0); Chloride 109 mmol/L (98-107)
[2021-11-07 09:13] LABS: Blood Urea Nitrogen 22 mg/dl (9-20); Calcium 8.9 mg/dl (8.4-10.2); Estimated Glomerular Filt Rate 39 ml/min (>60); GFR (African American) 47 ML/MIN (>60); Glucose 176 mg/dl (74-100)
[2021-11-07 09:14] LABS: Anion Gap 11.6 mEq/L (5-15); Carbon Dioxide 23 mmol/L (22.0-30.0); Magnesium 1.7 mg/dl (1.6-2.3)
[2021-11-07 09:15] LABS: Phosphorous 2.5 mg/dl (2.5-4.5)
== END ==
PROVIDERS: PCP Internal Medicine Adolescent Medicine; Visit Provider Internal Medicine
DX: Z94.0 Kidney transplant status (principal)
CPT/HCPCS: 36415; 80069; 81001; 83735; 85025

== ENCOUNTER → 2021-12-10 08:13 | Outpatient (CLI) | payer OTHER, SELFPAY ==
[2021-12-10 08:39] LABS: Microscopic, Urine URINE MICROSCOPIC (MICROSCOPIC)
[2021-12-10 09:02] LABS: Basophils % 0.6 % (0.1-2.0); Eosinophils # 0.1 K/mm3 (0.0-0.4); Eosinophils % 1.2 % (0.1-12.0); Hemoglobin 10.3 g/dL (14.1-18.0); Lymphocytes # 0.6 K/mm3 (0.7-4.5); Lymphocytes % 13.9 % (10-50); Mean Corpuscular HGB Conc 31.2 g/dL (31.8-35.4); Mean Corpuscular Hemoglobin 29.2 pg (27.0-31.2); Mean Corpuscular Volume 93.8 fl (80-94); Mean Platelet Volume 8.8 fl (7.4-10.4); Monocytes # 0.3 K/mm3 (0.1-1.0); Monocytes % 6.2 % (1.7-9.3); Neutrophils # 3.3 K/mm3 (1.8-7.8); Neutrophils % 78.1 % (37.0-80.0); Platelet Count 147 K/mm3 (142-424); Red Blood Count 3.52 M/mm3 (4.60-6.20); Red Cell Distribution Width 13.1 % (11.5-17.5); White Blood Count 4.2 K/mm3 (4.8-10.8)
[2021-12-10 09:04] LABS: Appearance,Urine CLEAR (Clear); Bilirubin,Urine Negative (Negative); Blood, Urine TRACE-I (Negative); Color,Urine YELLOW (Yellow); Glucose,Urine (UA) Negative (Negative); Ketones,Urine Negative (Negative); Leukocyte Esterase,Urine Negative (Negative); Nitrate,Urine Negative (Negative); Protein,Urine 1+ (Negative); Urobilinogen,Urine 0.2 EU/dl (0.2)
[2021-12-10 09:28] LABS: Albumin Level 4.3 g/dl (3.5-5.0); Anion Gap 11.5 mEq/L (5-15); Bacteria,Urine Trace /lpf; Blood Urea Nitrogen 22 mg/dl (9-20); Calcium 8.7 mg/dl (8.4-10.2); Carbon Dioxide 24 mmol/L (22.0-30.0); Chloride 106 mmol/L (98-107); Estimated Glomerular Filt Rate 39 ml/min (>60); GFR (African American) 47 ML/MIN (>60); Glucose 133 mg/dl (74-100); Magnesium 1.5 mg/dl (1.6-2.3); Phosphorous 2.4 mg/dl (2.5-4.5); Potassium 3.5 mmoL/L (3.5-5.1); RBC,Urine Occasional #/hpf (0-3); Sodium 138 mmol/L (136-145); Squamous Epithelial Cell,Urine Occasional #/hpf (0-5)
== END ==
PROVIDERS: PCP Internal Medicine Adolescent Medicine; Visit Provider Internal Medicine
DX: Z94.0 Kidney transplant status (principal)
CPT/HCPCS: 36415; 80069; 81001; 83735; 85025

== ENCOUNTER → 2022-01-02 07:42 | Outpatient (CLI) | payer OTHER, SELFPAY ==
[2022-01-02 07:52] LABS: Microscopic, Urine URINE MICROSCOPIC (MICROSCOPIC)
[2022-01-02 08:19] LABS: Basophils # 0.1 K/mm3 (0-0.2); Basophils % 0.8 % (0.1-2.0); Eosinophils # 0.2 K/mm3 (0.0-0.4); Eosinophils % 2.7 % (0.1-12.0); Hematocrit 31.5 % (42.0-52.0); Hemoglobin 10.1 g/dL (14.1-18.0); Lymphocytes # 0.8 K/mm3 (0.7-4.5); Lymphocytes % 12.1 % (10-50); Mean Corpuscular HGB Conc 32.2 g/dL (31.8-35.4); Mean Corpuscular Volume 96.3 fl (80-94); Mean Platelet Volume 9.7 fl (7.4-10.4); Monocytes # 0.5 K/mm3 (0.1-1.0); Monocytes % 7.1 % (1.7-9.3); Neutrophils # 5.3 K/mm3 (1.8-7.8); Neutrophils % 77.3 % (37.0-80.0); Platelet Count 201 K/mm3 (142-424); Red Blood Count 3.27 M/mm3 (4.60-6.20); White Blood Count 6.9 K/mm3 (4.8-10.8)
[2022-01-02 08:25] LABS: Appearance,Urine CLEAR (Clear); Bilirubin,Urine Negative (Negative); Blood, Urine TRACE-I (Negative); Color,Urine YELLOW (Yellow); Glucose,Urine (UA) Negative (Negative); Ketones,Urine Negative (Negative); Leukocyte Esterase,Urine Negative (Negative); Nitrate,Urine Negative (Negative); Protein,Urine Negative (Negative); Specific Gravity, Urine 1.015 (1.005-1.030); Urobilinogen,Urine 0.2 EU/dl (0.2)
[2022-01-02 08:39] LABS: Squamous Epithelial Cell,Urine Occasional #/hpf (0-5); WBC,Urine Occasional #/hpf (0-3)
[2022-01-02 09:12] LABS: Albumin Level 4.3 g/dl (3.5-5.0); Blood Urea Nitrogen 22 mg/dl (9-20); Calcium 8.7 mg/dl (8.4-10.2); Carbon Dioxide 23 mmol/L (22.0-30.0); Chloride 106 mmol/L (98-107); Estimated Glomerular Filt Rate 39 ml/min (>60); GFR (African American) 47 ML/MIN (>60); Glucose 143 mg/dl (74-100); Magnesium 1.6 mg/dl (1.6-2.3); Phosphorous 2.8 mg/dl (2.5-4.5); Sodium 140 mmol/L (136-145)
== END ==
PROVIDERS: PCP Internal Medicine Adolescent Medicine; Visit Provider Internal Medicine
DX: Z94.0 Kidney transplant status (principal)
CPT/HCPCS: 36415; 80069; 81001; 83735; 85025

== ENCOUNTER → 2022-07-24 07:45 | Outpatient (CLI) | payer OTHER, SELFPAY ==
[2022-07-24 08:01] LABS: Microscopic, Urine URINE MICROSCOPIC (MICROSCOPIC)
[2022-07-24 08:28] LABS: Basophils % 0.5 % (0.1-2.0); Eosinophils # 0.2 K/mm3 (0.0-0.4); Eosinophils % 2.2 % (0.1-12.0); Hematocrit 34.3 % (42.0-52.0); Hemoglobin 11.1 g/dL (14.1-18.0); Lymphocytes # 0.7 K/mm3 (0.7-4.5); Lymphocytes % 9.5 % (10-50); Mean Corpuscular HGB Conc 32.5 g/dL (31.8-35.4); Mean Corpuscular Hemoglobin 29.6 pg (27.0-31.2); Mean Corpuscular Volume 90.9 fl (80-94); Mean Platelet Volume 9.8 fl (7.4-10.4); Monocytes # 0.4 K/mm3 (0.1-1.0); Monocytes % 6.1 % (1.7-9.3); Neutrophils % 81.9 % (37.0-80.0); Platelet Count 190 K/mm3 (142-424); Red Blood Count 3.77 M/mm3 (4.60-6.20); Red Cell Distribution Width 13.9 % (11.5-17.5); White Blood Count 7.3 K/mm3 (4.8-10.8)
[2022-07-24 08:53] LABS: Appearance,Urine CLEAR (Clear); Bilirubin,Urine Negative (Negative); Blood, Urine TRACE-L (Negative); Color,Urine YELLOW (Yellow); Glucose,Urine (UA) TRACE (Negative); Ketones,Urine Negative (Negative); Leukocyte Esterase,Urine Negative (Negative); Nitrate,Urine Negative (Negative); Protein,Urine Negative (Negative); Urobilinogen,Urine 0.2 EU/dl (0.2)
[2022-07-24 09:00] LABS: Chloride 108 mmol/L (98-107); Sodium 140 mmol/L (136-145)
[2022-07-24 09:01] LABS: Albumin Level 4.7 g/dl (3.5-5.0)
[2022-07-24 09:03] LABS: Blood Urea Nitrogen 26 mg/dl (9-20); Carbon Dioxide 21 mmol/L (22.0-30.0); Estimated Glomerular Filt Rate 32 ml/min (>60); GFR (African American) 39 ML/MIN (>60)
[2022-07-24 09:04] LABS: Calcium 8.8 mg/dl (8.4-10.2); Glucose 187 mg/dl (74-100); Magnesium 1.8 mg/dl (1.6-2.3); Phosphorous 2.9 mg/dl (2.5-4.5)
[2022-07-24 09:12] LABS: RBC,Urine Occasional #/hpf (0-3)
[2022-07-31 13:12] LABS: Tacrolimus (FK506), Blood 6.1
== END ==
PROVIDERS: Visit Provider Internal Medicine
DX: Z94.0 Kidney transplant status (principal)
CPT/HCPCS: 36415; 80069; 80197; 81001; 83735; 85025

== ENCOUNTER → 2022-08-20 07:44 | Outpatient (CLI) | payer OTHER, SELFPAY ==
[2022-08-20 08:00] LABS: Microscopic, Urine URINE MICROSCOPIC (MICROSCOPIC)
[2022-08-20 08:23] LABS: Appearance,Urine CLEAR (Clear); Bilirubin,Urine Negative (Negative); Blood, Urine Negative (Negative); Color,Urine YELLOW (Yellow); Glucose,Urine (UA) Negative (Negative); Ketones,Urine Negative (Negative); Leukocyte Esterase,Urine Negative (Negative); Nitrate,Urine Negative (Negative); Protein,Urine Negative (Negative); Specific Gravity, Urine 1.015 (1.005-1.030); Urobilinogen,Urine 0.2 EU/dl (0.2)
[2022-08-20 08:32] LABS: Basophils % 0.4 % (0.1-2.0); Eosinophils # 0.1 K/mm3 (0.0-0.4); Hematocrit 31.6 % (42.0-52.0); Hemoglobin 10.3 g/dL (14.1-18.0); Lymphocytes # 0.7 K/mm3 (0.7-4.5); Mean Corpuscular HGB Conc 32.6 g/dL (31.8-35.4); Mean Corpuscular Hemoglobin 29.9 pg (27.0-31.2); Mean Corpuscular Volume 91.6 fl (80-94); Monocytes # 0.4 K/mm3 (0.1-1.0); Monocytes % 6.3 % (1.7-9.3); Neutrophils # 4.9 K/mm3 (1.8-7.8); Neutrophils % 79.4 % (37.0-80.0); Platelet Count 179 K/mm3 (142-424); Red Blood Count 3.44 M/mm3 (4.60-6.20); Red Cell Distribution Width 13.6 % (11.5-17.5); White Blood Count 6.2 K/mm3 (4.8-10.8)
[2022-08-20 08:34] LABS: Bacteria,Urine Trace /lpf; Squamous Epithelial Cell,Urine Occasional #/hpf (0-5); WBC,Urine Occasional #/hpf (0-3)
[2022-08-20 09:07] LABS: Albumin Level 4.1 g/dl (3.5-5.0); Anion Gap 17.8 mEq/L (5-15); Blood Urea Nitrogen 19 mg/dl (9-20); Calcium 8.6 mg/dl (8.4-10.2); Carbon Dioxide 23 mmol/L (22.0-30.0); Chloride 103 mmol/L (98-107); Estimated Glomerular Filt Rate 36 ml/min (>60); GFR (African American) 44 ML/MIN (>60); Glucose 119 mg/dl (74-100); Magnesium 1.6 mg/dl (1.6-2.3); Phosphorous 2.5 mg/dl (2.5-4.5); Potassium 3.8 mmoL/L (3.5-5.1); Sodium 140 mmol/L (136-145)
[2022-08-23 16:28] LABS: BKV DNA, Quant PCR, Plasma 164 IU/mL (Negative); log10 BKV DNA 2.215 (.)
[2022-08-27 11:37] LABS: Tacrolimus (FK506), Blood 7.3
[2022-08-27 11:38] LABS: Miscellaneous Test NEGATIVE
== END ==
PROVIDERS: PCP Family Medicine; Visit Provider Internal Medicine
DX: Z94.0 Kidney transplant status (principal); Z79.899 Other long term (current) drug therapy; N18.9 Chronic kidney disease, unspecified; R80.9 Proteinuria, unspecified; D64.9 Anemia, unspecified
CPT/HCPCS: 36415; 80069; 80197; 81001; 83735; 85025; 87799

== ENCOUNTER → 2022-10-01 07:31 | Outpatient (CLI) | payer OTHER, SELFPAY ==
[2022-10-01 07:45] LABS: Microscopic, Urine URINE MICROSCOPIC (MICROSCOPIC)
[2022-10-01 08:16] LABS: Appearance,Urine CLEAR (Clear); Bilirubin,Urine Negative (Negative); Blood, Urine TRACE-I (Negative); Color,Urine YELLOW (Yellow); Glucose,Urine (UA) Negative (Negative); Ketones,Urine Negative (Negative); Leukocyte Esterase,Urine Negative (Negative); Nitrate,Urine Negative (Negative); Protein,Urine Negative (Negative); Specific Gravity, Urine 1.015 (1.005-1.030); Urobilinogen,Urine 0.2 EU/dl (0.2)
[2022-10-01 08:31] LABS: Bacteria,Urine Trace /lpf; RBC,Urine Occasional #/hpf (0-3); Squamous Epithelial Cell,Urine Occasional #/hpf (0-5); WBC,Urine Occasional #/hpf (0-3)
[2022-10-01 09:27] LABS: Basophils % 0.3 % (0.1-2.0); Eosinophils # 0.2 K/mm3 (0.0-0.4); Hematocrit 32.2 % (42.0-52.0); Hemoglobin 10.6 g/dL (14.1-18.0); Lymphocytes # 0.9 K/mm3 (0.7-4.5); Mean Corpuscular HGB Conc 32.8 g/dL (31.8-35.4); Mean Corpuscular Hemoglobin 29.4 pg (27.0-31.2); Mean Corpuscular Volume 89.5 fl (80-94); Mean Platelet Volume 9.9 fl (7.4-10.4); Monocytes # 0.4 K/mm3 (0.1-1.0); Monocytes % 5.7 % (1.7-9.3); Neutrophils # 5.9 K/mm3 (1.8-7.8); Platelet Count 167 K/mm3 (142-424); Red Cell Distribution Width 13.6 % (11.5-17.5); White Blood Count 7.3 K/mm3 (4.8-10.8)
[2022-10-01 09:58] LABS: Albumin Level 4.5 g/dl (3.5-5.0); Blood Urea Nitrogen 26 mg/dl (9-20); Calcium 8.8 mg/dl (8.4-10.2); Carbon Dioxide 23 mmol/L (22.0-30.0); Chloride 106 mmol/L (98-107); Estimated Glomerular Filt Rate 32 ml/min (>60); GFR (African American) 39 ML/MIN (>60); Glucose 149 mg/dl (74-100); Magnesium 1.7 mg/dl (1.6-2.3); Phosphorous 2.9 mg/dl (2.5-4.5); Sodium 141 mmol/L (136-145)
[2022-10-29 23:44] LABS: Tacrolimus (FK506), Blood 4.6
== END ==
PROVIDERS: Visit Provider Internal Medicine
DX: Z94.0 Kidney transplant status (principal); Z79.899 Other long term (current) drug therapy
CPT/HCPCS: 36415; 80069; 80197; 81001; 83735; 85025

== ENCOUNTER → 2022-11-19 07:51 | Outpatient (CLI) | payer OTHER, SELFPAY ==
[2022-11-19 07:59] LABS: Microscopic, Urine URINE MICROSCOPIC (MICROSCOPIC)
[2022-11-19 08:13] LABS: Basophils # 0.1 K/mm3 (0-0.2); Basophils % 0.6 % (0.1-2.0); Eosinophils # 0.2 K/mm3 (0.0-0.4); Eosinophils % 3.2 % (0.1-12.0); Hematocrit 34.1 % (42.0-52.0); Hemoglobin 10.8 g/dL (14.1-18.0); Lymphocytes # 0.8 K/mm3 (0.7-4.5); Lymphocytes % 10.3 % (10-50); Mean Corpuscular HGB Conc 31.7 g/dL (31.8-35.4); Mean Corpuscular Hemoglobin 29.1 pg (27.0-31.2); Mean Corpuscular Volume 91.9 fl (80-94); Mean Platelet Volume 9.3 fl (7.4-10.4); Monocytes # 0.5 K/mm3 (0.1-1.0); Monocytes % 6.1 % (1.7-9.3); Neutrophils # 6.1 K/mm3 (1.8-7.8); Neutrophils % 79.7 % (37.0-80.0); Platelet Count 202 K/mm3 (142-424); Red Blood Count 3.71 M/mm3 (4.60-6.20); White Blood Count 7.6 K/mm3 (4.8-10.8)
[2022-11-19 08:40] LABS: Appearance,Urine CLEAR (Clear); Bilirubin,Urine Negative (Negative); Blood, Urine TRACE-I (Negative); Color,Urine YELLOW (Yellow); Glucose,Urine (UA) Negative (Negative); Ketones,Urine Negative (Negative); Leukocyte Esterase,Urine Negative (Negative); Nitrate,Urine Negative (Negative); Protein,Urine Negative (Negative); Specific Gravity, Urine 1.015 (1.005-1.030); Urobilinogen,Urine 0.2 EU/dl (0.2)
[2022-11-19 08:59] LABS: Albumin Level 4.5 g/dl (3.5-5.0); Anion Gap 16.2 mEq/L (5-15); Blood Urea Nitrogen 24 mg/dl (9-20); Calcium 9.1 mg/dl (8.4-10.2); Carbon Dioxide 22 mmol/L (22.0-30.0); Chloride 110 mmol/L (98-107); Estimated Glomerular Filt Rate 36 ml/min (>60); GFR (African American) 44 ML/MIN (>60); Glucose 155 mg/dl (74-100); Magnesium 1.6 mg/dl (1.6-2.3); Phosphorous 3.1 mg/dl (2.5-4.5); Potassium 4.2 mmoL/L (3.5-5.1); Sodium 144 mmol/L (136-145)
[2022-11-19 09:06] LABS: RBC,Urine Occasional #/hpf (0-3); Squamous Epithelial Cell,Urine Occasional #/hpf (0-5); WBC,Urine Occasional #/hpf (0-3)
[2022-11-19 09:07] LABS: Bacteria,Urine Trace /lpf
[2022-11-21 13:22] LABS: BKV DNA, Quant PCR, Plasma 142 IU/mL (Negative); log10 BKV DNA 2.152 (.)
[2022-12-04 09:51] LABS: Tacrolimus (FK506), Blood 5.4
== END ==
PROVIDERS: Visit Provider Internal Medicine
DX: Z94.0 Kidney transplant status (principal); N18.9 Chronic kidney disease, unspecified; Z79.899 Other long term (current) drug therapy
CPT/HCPCS: 36415; 80069; 80197; 81001; 83735; 85025; 87799

== ENCOUNTER → 2023-02-26 07:28 | Outpatient (CLI) | payer OTHER, SELFPAY ==
[2023-03-03 22:05] LABS: Tacrolimus (FK506), Blood 4.8
== END ==
PROVIDERS: PCP Nurse Practitioner Family; Visit Provider Internal Medicine
DX: Z94.0 Kidney transplant status (principal); Z79.899 Other long term (current) drug therapy
CPT/HCPCS: 36415; 80197

== ENCOUNTER → 2023-03-03 08:03 | Outpatient (CLI) | payer OTHER, SELFPAY ==
[2023-03-03 08:15] LABS: Microscopic, Urine URINE MICROSCOPIC (MICROSCOPIC)
[2023-03-03 08:56] LABS: Appearance,Urine CLEAR (Clear); Bilirubin,Urine Negative (Negative); Blood, Urine Negative (Negative); Color,Urine YELLOW (Yellow); Glucose,Urine (UA) Negative (Negative); Ketones,Urine Negative (Negative); Leukocyte Esterase,Urine Negative (Negative); Nitrate,Urine Negative (Negative); Protein,Urine Negative (Negative); Specific Gravity, Urine 1.015 (1.005-1.030); Urobilinogen,Urine 0.2 EU/dl (0.2)
[2023-03-03 09:09] LABS: Squamous Epithelial Cell,Urine Occasional #/hpf (0-5); WBC,Urine Occasional #/hpf (0-3)
[2023-03-03 09:11] LABS: Basophils % 0.3 % (0.1-2.0); Eosinophils # 0.2 K/mm3 (0.0-0.4); Eosinophils % 2.9 % (0.1-12.0); Hematocrit 32.4 % (42.0-52.0); Lymphocytes # 0.8 K/mm3 (0.7-4.5); Lymphocytes % 13.8 % (10-50); Mean Corpuscular HGB Conc 33.8 g/dL (31.8-35.4); Mean Corpuscular Hemoglobin 30.7 pg (27.0-31.2); Mean Corpuscular Volume 90.9 fl (80-94); Mean Platelet Volume 9.1 fl (7.4-10.4); Monocytes # 0.4 K/mm3 (0.1-1.0); Monocytes % 6.8 % (1.7-9.3); Neutrophils # 4.4 K/mm3 (1.8-7.8); Neutrophils % 76.2 % (37.0-80.0); Platelet Count 168 K/mm3 (142-424); Red Blood Count 3.57 M/mm3 (4.60-6.20); White Blood Count 5.8 K/mm3 (4.8-10.8)
[2023-03-03 09:56] LABS: Albumin Level 4.3 g/dl (3.5-5.0); Anion Gap 13.1 mEq/L (5-15); Blood Urea Nitrogen 22 mg/dl (9-20); Calcium 9.1 mg/dl (8.4-10.2); Carbon Dioxide 23 mmol/L (22.0-30.0); Chloride 106 mmol/L (98-107); Estimated Glomerular Filt Rate 32 ml/min (>60); GFR (African American) 39 ML/MIN (>60); Glucose 124 mg/dl (74-100); Magnesium 1.8 mg/dl (1.6-2.3); Phosphorous 2.8 mg/dl (2.5-4.5); Potassium 4.1 mmoL/L (3.5-5.1); Sodium 138 mmol/L (136-145)
[2023-03-05 18:06] LABS: BKV DNA, Quant PCR, Plasma 57 IU/mL (Negative); log10 BKV DNA 1.756 (.)
[2023-03-09 21:52] LABS: Tacrolimus (FK506), Blood 5.5
== END ==
PROVIDERS: PCP Nurse Practitioner Family; Visit Provider Internal Medicine
DX: Z94.0 Kidney transplant status (principal); Z79.899 Other long term (current) drug therapy
CPT/HCPCS: 36415; 80069; 80197; 81001; 83735; 85025; 87086; 87799

== ENCOUNTER 2023-04-16 07:41 | Outpatient (CLI) | payer OTHER, SELFPAY ==
[2023-04-16 08:36] LABS: Microscopic, Urine URINE MICROSCOPIC (MICROSCOPIC)
[2023-04-16 08:50] LABS: Appearance,Urine CLEAR (Clear); Blood, Urine TRACE-I (Negative); Color,Urine YELLOW (Yellow); Glucose,Urine (UA) Negative (Negative); Ketones,Urine Negative (Negative); Nitrate,Urine Negative (Negative); Protein,Urine Negative (Negative); Specific Gravity, Urine 1.015 (1.005-1.030)
[2023-04-16 08:51] LABS: Bilirubin,Urine Negative (Negative); Leukocyte Esterase,Urine Negative (Negative); Urobilinogen,Urine 0.2 EU/dl (0.2)
[2023-04-16 08:56] LABS: Basophils % 0.8 % (0.1-2.0); Eosinophils # 0.1 K/mm3 (0.0-0.4); Eosinophils % 2.3 % (0.1-12.0); Hematocrit 35.2 % (42.0-52.0); Hemoglobin 11.6 g/dL (14.1-18.0); Lymphocytes # 0.8 K/mm3 (0.7-4.5); Lymphocytes % 13.9 % (10-50); Mean Corpuscular HGB Conc 32.9 g/dL (31.8-35.4); Mean Corpuscular Hemoglobin 30.7 pg (27.0-31.2); Mean Corpuscular Volume 93.4 fl (80-94); Mean Platelet Volume 9.8 fl (7.4-10.4); Monocytes # 0.4 K/mm3 (0.1-1.0); Monocytes % 6.4 % (1.7-9.3); Neutrophils # 4.2 K/mm3 (1.8-7.8); Neutrophils % 76.7 % (37.0-80.0); Platelet Count 168 K/mm3 (142-424); Red Blood Count 3.77 M/mm3 (4.60-6.20); Red Cell Distribution Width 14.4 % (11.5-17.5); White Blood Count 5.5 K/mm3 (4.8-10.8)
[2023-04-16 09:14] LABS: WBC,Urine Occasional #/hpf (0-3)
[2023-04-16 09:15] LABS: RBC,Urine Occasional #/hpf (0-3); Squamous Epithelial Cell,Urine Occasional #/hpf (0-5)
[2023-04-16 10:11] LABS: Albumin Level 4.4 g/dl (3.5-5.0); Anion Gap 11.9 mEq/L (5-15); Blood Urea Nitrogen 23 mg/dl (9-20); Calcium 8.4 mg/dl (8.4-10.2); Carbon Dioxide 20 mmol/L (22.0-30.0); Chloride 108 mmol/L (98-107); Estimated Glomerular Filt Rate 36 ml/min (>60); GFR (African American) 44 ML/MIN (>60); Glucose 145 mg/dl (74-100); Magnesium 1.8 mg/dl (1.6-2.3); Phosphorous 2.7 mg/dl (2.5-4.5); Potassium 3.9 mmoL/L (3.5-5.1); Sodium 136 mmol/L (136-145)
[2023-04-18 16:20] LABS: BKV DNA, Quant PCR, Plasma 64 IU/mL (Negative); log10 BKV DNA 1.806 (.)
[2023-04-29 08:30] LABS: Tacrolimus (Prograf) 7.3
== END 2023-04-16 23:59 ==
PROVIDERS: PCP Internal Medicine Adolescent Medicine; Visit Provider Internal Medicine
DX: Z94.0 Kidney transplant status (principal)
CPT/HCPCS: 36415; 80069; 80197; 81001; 83735; 85025; 87086; 87799

== ENCOUNTER 2023-05-13 07:46 | Outpatient (CLI) | payer OTHER, SELFPAY ==
[2023-05-13 07:59] LABS: Microscopic, Urine URINE MICROSCOPIC (MICROSCOPIC)
[2023-05-13 08:24] LABS: Basophils # 0.1 K/mm3 (0-0.2); Eosinophils # 0.1 K/mm3 (0.0-0.4); Eosinophils % 2.2 % (0.1-12.0); Hematocrit 35.4 % (42.0-52.0); Hemoglobin 11.9 g/dL (14.1-18.0); Lymphocytes # 0.9 K/mm3 (0.7-4.5); Lymphocytes % 16.4 % (10-50); Mean Corpuscular HGB Conc 33.5 g/dL (31.8-35.4); Mean Corpuscular Hemoglobin 31.1 pg (27.0-31.2); Mean Corpuscular Volume 92.9 fl (80-94); Mean Platelet Volume 9.3 fl (7.4-10.4); Monocytes # 0.4 K/mm3 (0.1-1.0); Monocytes % 7.7 % (1.7-9.3); Neutrophils # 4.2 K/mm3 (1.8-7.8); Neutrophils % 72.8 % (37.0-80.0); Platelet Count 151 K/mm3 (142-424); Red Blood Count 3.81 M/mm3 (4.60-6.20); White Blood Count 5.8 K/mm3 (4.8-10.8)
[2023-05-13 08:49] LABS: Appearance,Urine CLEAR (Clear); Bilirubin,Urine Negative (Negative); Blood, Urine TRACE-I (Negative); Color,Urine YELLOW (Yellow); Glucose,Urine (UA) Negative (Negative); Ketones,Urine Negative (Negative); Leukocyte Esterase,Urine Negative (Negative); Nitrate,Urine Negative (Negative); Protein,Urine Negative (Negative); Specific Gravity, Urine 1.015 (1.005-1.030); Urobilinogen,Urine 0.2 EU/dl (0.2)
[2023-05-13 09:06] LABS: Albumin Level 4.4 g/dl (3.5-5.0); Blood Urea Nitrogen 23 mg/dl (9-20); Calcium 9.1 mg/dl (8.4-10.2); Carbon Dioxide 23 mmol/L (22.0-30.0); Chloride 109 mmol/L (98-107); Estimated Glomerular Filt Rate 36 ml/min (>60); GFR (African American) 44 ML/MIN (>60); Glucose 149 mg/dl (74-100); Magnesium 1.9 mg/dl (1.6-2.3); Phosphorous 2.6 mg/dl (2.5-4.5); Sodium 140 mmol/L (136-145)
[2023-05-13 09:20] LABS: Bacteria,Urine Trace /lpf; RBC,Urine Occasional #/hpf (0-3); Squamous Epithelial Cell,Urine Occasional #/hpf (0-5); WBC,Urine Occasional #/hpf (0-3)
[2023-05-16 08:34] LABS: BKV DNA, Quant PCR, Plasma 37 IU/mL (Negative); log10 BKV DNA 1.568 (.)
[2023-05-19 10:44] LABS: Tacrolimus (Prograf) 5.1
== END 2023-05-13 23:59 ==
LOC: LAB 07:51
PROVIDERS: PCP Internal Medicine Adolescent Medicine; Visit Provider Internal Medicine
DX: Z94.0 Kidney transplant status (principal); Z79.899 Other long term (current) drug therapy
CPT/HCPCS: 36415; 80069; 80197; 81001; 83735; 85025; 87086; 87799

== ENCOUNTER 2023-06-02 07:49 | Outpatient (CLI) | payer OTHER, SELFPAY ==
[2023-06-02 08:09] LABS: Microscopic, Urine URINE MICROSCOPIC (MICROSCOPIC)
[2023-06-02 08:24] LABS: Basophils % 0.2 % (0.1-2.0); Eosinophils # 0.1 K/mm3 (0.0-0.4); Eosinophils % 2.5 % (0.1-12.0); Hemoglobin 11.7 g/dL (14.1-18.0); Lymphocytes # 0.8 K/mm3 (0.7-4.5); Lymphocytes % 18.9 % (10-50); Mean Corpuscular HGB Conc 32.6 g/dL (31.8-35.4); Mean Corpuscular Hemoglobin 29.5 pg (27.0-31.2); Mean Corpuscular Volume 90.5 fl (80-94); Mean Platelet Volume 9.5 fl (7.4-10.4); Monocytes # 0.4 K/mm3 (0.1-1.0); Neutrophils # 2.8 K/mm3 (1.8-7.8); Neutrophils % 69.4 % (37.0-80.0); Platelet Count 153 K/mm3 (142-424); Red Blood Count 3.98 M/mm3 (4.60-6.20); Red Cell Distribution Width 14.1 % (11.5-17.5)
[2023-06-02 08:27] LABS: Appearance,Urine CLEAR (Clear); Bilirubin,Urine Negative (Negative); Blood, Urine TRACE-I (Negative); Color,Urine YELLOW (Yellow); Glucose,Urine (UA) Negative (Negative); Ketones,Urine Negative (Negative); Leukocyte Esterase,Urine Negative (Negative); Nitrate,Urine Negative (Negative); Protein,Urine TRACE (Negative); Specific Gravity, Urine 1.015 (1.005-1.030); Urobilinogen,Urine 0.2 EU/dl (0.2)
[2023-06-02 09:10] LABS: Albumin Level 4.4 g/dl (3.5-5.0); Anion Gap 12.5 mEq/L (5-15); Blood Urea Nitrogen 20 mg/dl (9-20); Calcium 8.5 mg/dl (8.4-10.2); Carbon Dioxide 22 mmol/L (22.0-30.0); Chloride 109 mmol/L (98-107); Estimated Glomerular Filt Rate 39 ml/min (>60); GFR (African American) 47 ML/MIN (>60); Glucose 152 mg/dl (74-100); Magnesium 1.7 mg/dl (1.6-2.3); Phosphorous 2.8 mg/dl (2.5-4.5); Potassium 3.5 mmoL/L (3.5-5.1); Sodium 140 mmol/L (136-145)
[2023-06-02 09:30] LABS: Bacteria,Urine Trace /lpf; RBC,Urine Occasional #/hpf (0-3)
[2023-06-04 16:13] LABS: BKV DNA, Quant PCR, Plasma 33 IU/mL (Negative); log10 BKV DNA 1.519 (.)
[2023-06-07 09:45] LABS: Tacrolimus (Prograf) 7.9
== END 2023-06-02 23:59 ==
LOC: LAB 07:50
PROVIDERS: PCP Internal Medicine Adolescent Medicine; Visit Provider Internal Medicine Adolescent Medicine
DX: Z94.0 Kidney transplant status (principal); N18.9 Chronic kidney disease, unspecified; B33.8 Other specified viral diseases; Z79.899 Other long term (current) drug therapy
CPT/HCPCS: 36415; 80069; 80197; 81001; 83735; 85025; 87799

== ENCOUNTER 2023-06-18 08:12 | Outpatient (CLI) | payer MEDICARE, OTHER, SELFPAY ==
--- NOTE | 2023-06-18 08:15 | US_ITS ---
FINAL REPORT CLINICAL HISTORY: RLQ PAIN,RT GROIN PAIN FINDINGS: Limited sonographic images of the right pelvis were obtained. There is a 12.8 cm renal transplant in the right iliac fossa. There is a cyst measuring up to 2.6 cm in the upper pole of the transplanted kidney. There is no hydronephrosis. There are small lymph nodes in the right groin. IMPRESSION: Small lymph nodes in the right groin. Cyst in the transplanted kidney. Reviewed, Interpreted and Dictated by Deo Hare III, MD Transcribed by Polly Nelson Authenticated and [facility]
--- NOTE | 2023-06-18 09:04 | US_ITS ---
FINAL REPORT TECHNIQUE: Ultrasound images of the testicles were obtained bilaterally. Color Doppler images were obtained. CLINICAL HISTORY: RT GROIN PAIN,RT TESTICULAR PAIN-- rt kid transplant FINDINGS: The right testicle measures 3.4 cm. There is a 3 cm cystic mass in the region of the right epididymal head, may represent large epididymal cyst versus spermatocele. The left testicle measures 4.3 cm. There is a small left hydrocele. Arterial flow is identified bilaterally. IMPRESSION: Large right epididymal cyst versus spermatocele. Small left hydrocele. Reviewed, Interpreted and Dictated by Doe Hare III, MD Transcribed by Polly Nelson Authenticated and [facility]
== END 2023-06-18 23:59 | disposition home or self-care (01) ==
LOC: RAD 08:12
PROVIDERS: PCP Internal Medicine Adolescent Medicine; Visit Provider Nurse Practitioner Family
DX: R10.31 Right lower quadrant pain (principal); N50.811 Right testicular pain
CPT/HCPCS: 76870; 76882

== ENCOUNTER 2023-06-24 10:39 | Emergency (ER) | payer MEDICARE, OTHER, SELFPAY ==
[2023-06-24] VITALS (15 sets, daily range): BP systolic 142–210; BP diastolic 71–101; PULSE 57–90; RESP 16–24; TEMP 36.7–36.8; O2SAT 97–100; BMI 24.3
--- NOTE | 2023-06-24 10:37 | ECG_ITS ---
APPROVED REPORT Exam: Resting ECG HR:83 bpm ECG Measurements Heart Rate 83 AXES UT 149 P 71 QRSd 100 QRS 75 QT 356 T 44 QTc 396 Conclusion SINUS RHYTHM WITH SINUS T wave inversions without reciprocal change. Consider subendocardial ischemia Electronically signed by : JUAN F VAZQUEZ, 06/24/2023 15:53:44
--- NOTE | 2023-06-24 10:41 | PC.NURSE ---
DR VAZQUEZ AT BEDSIDE
--- NOTE | 2023-06-24 10:46 | XR_ITS ---
FINAL REPORT CLINICAL HISTORY: cp soa FINDINGS: SINGLE-VIEW CHEST The heart size is normal. The mediastinum is normal. The lungs are clear. There is no pneumothorax. IMPRESSION: No acute cardiopulmonary process. Reviewed, Interpreted and Dictated by Deo Hare III, MD Transcribed by Polly Nelson Authenticated and [facility]
[2023-06-24 10:51] LABS: Coronavirus 19, PCR Not Detected (NotDetected); Influenza A, PCR Not Detected (NotDetected); Influenza B, PCR Not Detected (NotDetected)
--- NOTE | 2023-06-24 10:55 | PC.NURSE ---
XR AT BEDSIDE
[2023-06-24] MEDS: ASPIRIN 81MG CHEWABLE TABLET 324 MG PO (10:56)
[2023-06-24] MEDS: NITROGLYCERIN 0.4MG SL TABLET 0.4 MG SL (10:56)
[2023-06-24 11:00] LABS: Basophils % 0.7 % (0.1-2.0); Eosinophils # 0.1 K/mm3 (0.0-0.4); Eosinophils % 0.9 % (0.1-12.0); Hematocrit 36.5 % (42.0-52.0); Hemoglobin 12.1 g/dL (14.1-18.0); Lymphocytes # 0.8 K/mm3 (0.7-4.5); Lymphocytes % 12.4 % (10-50); Mean Corpuscular HGB Conc 33.1 g/dL (31.8-35.4); Mean Corpuscular Hemoglobin 30.6 pg (27.0-31.2); Mean Corpuscular Volume 92.4 fl (80-94); Mean Platelet Volume 9.7 fl (7.4-10.4); Monocytes # 0.4 K/mm3 (0.1-1.0); Neutrophils # 5.3 K/mm3 (1.8-7.8); Platelet Count 171 K/mm3 (142-424); Red Blood Count 3.95 M/mm3 (4.60-6.20); Red Cell Distribution Width 14.2 % (11.5-17.5); White Blood Count 6.6 K/mm3 (4.8-10.8)
[2023-06-24 11:01] LABS: Chloride 107 mmol/L (98-107); Potassium 3.7 mmoL/L (3.5-5.1); Sodium 140 mmol/L (136-145)
[2023-06-24 11:03] LABS: Alanine Aminotransferase 33 U/L (12-78); Aspartate Amino Transferase 33 U/L (17-59); Blood Urea Nitrogen 22 mg/dl (9-20); Creatinine Clearance Estimated 50 mL/min (50-200); Estimated Glomerular Filt Rate 36 ml/min (>60); GFR (African American) 44 ML/MIN (>60)
[2023-06-24 11:04] LABS: Albumin Level 4.6 g/dl (3.5-5.0); Albumin/Globulin Ratio 1.6 (1.1-1.8); Alkaline Phosphatase 83 U/L (38-126); Anion Gap 14.7 mEq/L (5-15); Bilirubin,Total 0.4 mg/dl (0.2-1.3); Calcium 9.5 mg/dl (8.4-10.2); Carbon Dioxide 22 mmol/L (22.0-30.0); Globulin 2.8 g/dL (1.3-3.2); Glucose 201 mg/dl (74-100); Total Protein,Serum 7.4 g/dl (6.3-8.2)
--- NOTE | 2023-06-24 11:10 | HMH.EDCP ---
Discharge Plan Disposition Patient Disposition: Xfer Short-Term Hosp Prescriptions Prescriptions: No Action doxazosin 2 MG tablet 2 mg PO HS mycophenolate mofetil 250 MG capsule 250 mg PO BID prednisone 5 MG tablet 5 mg PO DIRECTED Rx Instructions: take every other day dapsone 100 MG tablet 100 mg PO WEEKLY famotidine 20 MG tablet 20 mg PO BID folic acid 1 MG tablet 1 mg PO DAILY polysaccharide iron complex 150 MG capsule 150 mg PO BID magnesium chloride 70 MG tablet,delayed release (DR/EC) 70 mg PO BID multivitamin 1 EACH tablet 1 each PO DAILY nifedipine 90 MG tablet extended release 24 hr 90 mg PO BID sod phos di, mono-K phos mono 250 MG tablet 500 mg PO BID sitagliptin phosphate 25 MG tablet 25 mg PO DAILY tacrolimus 4 MG tablet extended release 24 hr 22 mg PO DAILY tamsulosin 0.4 MG capsule 0.4 mg PO HS acetaminophen 500 MG tablet 500 mg PO Q6HP PRN (Reason: pain/fever) docusate sodium 100 MG capsule 100 mg PO BIDP PRN (Reason: Constipation) cyanocobalamin (vitamin B-12) 1,000 MCG/ML solution 1,000 mg IM WEEKLY ergocalciferol (vitamin D2) 50,000 UNIT capsule 50,000 unit PO WEEKLY Referrals Follow up/Referrals: Dlel Negron MD [Primary Care Provider] - See instructions Clinical Impressions Clinical Impression: Non-ST elevation CO (NSTEMI) Stand Alone Forms Stand Alone Forms: Transfer Record - ED Discharge ED Provider: Josue Pickens HPI General Chief Complaint: Chest Pain Stated Complaint: Chest Pain Time Seen by Provider: 06/24/23 10:41 Mode of Arrival: Ambulatory Source of Information: Patient Limitations: No Limitations Description of Symptoms (Recalled from ER Triage Doc. by RN): PT C/O LEFT SIDED CHEST PAIN THAT RADIATES TO LEFT ARM, BACK AND SHOULDERS THAT STARTED LAST WEEK NOTICED WHILE WORKING. REPORTS CHILLS X 2 DAYS. REPORTS NAUSEA AND SHORTNESS OF BREATH History of Present Illness HPI narrative: This is a 62-year-old male with history of hypertension, kidney transplant in December 2020 presenting with chest pain. Patient states that on and off for the past week he has had shortness of breath and chest pain. Made worse with exertion, better with rest, but is also intermittently present at rest without explanation. States that the chest pressure is sometimes left-sided, sometimes right-sided, radiates to his bilateral arms and associated with arm and chest tingling. No weakness or unilateral deficits. Patient states that he called his patient appointment coordinator today because he was having tremors and they recommended he come to the emergency department for further evaluation. Patient states that he has not had any recent medication changes and has been compliant with all of his medications, as prescribed. He has numerous sick contacts recently with flu, but other than dry cough has had no other symptoms. No lower extremity edema out of the ordinary, diaphoresis, nausea or vomiting, diarrhea, abdominal pain, fevers or chills, or any other concerns. Related Data Home Medications Medication Instructions Recorded Confirmed cyanocobalamin (vitamin B-12) 1,000 mg IM WEEKLY Supplement 06/21/20 08/14/21 1,000 mcg/mL injection solution ergocalciferol (vitamin D2) 1,250 50,000 unit PO WEEKLY Supplement 06/21/20 08/14/21 mcg (50,000 unit) capsule doxazosin 2 mg tablet 2 mg PO HS heart/fluid 08/06/20 08/14/21 acetaminophen 500 mg tablet 500 mg PO Q6HP PRN pain/fever 08/14/21 08/14/21 dapsone 100 mg tablet 100 mg PO WEEKLY Infection 08/14/21 08/14/21 docusate sodium 100 mg capsule 100 mg PO BIDP PRN Constipation 08/14/21 08/14/21 famotidine 20 mg tablet 20 mg PO BID acid reflux 08/14/21 08/14/21 folic acid 1 mg tablet 1 mg PO DAILY Supplement 08/14/21 08/14/21 magnesium chloride 70 mg 70 mg PO BID Supplement 08/14/21 08/14/21 (magnesium chloride) tablet,delayed release multivitamin 1 each PO DAILY Supplement 08/14/21 08/14/21 mycophenolate mofetil 250 mg 250 mg PO BID antirejection 08/14/21 08/14/21 capsule nifedipine 90 mg tablet,extended 90 mg PO BID heart/fluid 08/14/21 08/14/21 release 24 hr polysaccharide iron complex 150 mg 150 mg PO BID Supplement 08/14/21 08/14/21 iron capsule prednisone 5 mg tablet 5 mg PO DIRECTED inflammation 08/14/21 08/14/21 sitagliptin phosphate 25 mg tablet 25 mg PO DAILY blood sugar 08/14/21 08/14/21 sodium di- and 500 mg PO BID Supplement 08/14/21 08/14/21 monophosphate-potassium phos monobasic 250 mg tablet tacrolimus 4 mg tablet,extended 22 mg PO DAILY antirejection 08/14/21 08/14/21 release 24 hr tamsulosin 0.4 mg capsule 0.4 mg PO HS urinary flow 08/14/21 08/14/21 Allergies Allergy/AdvReac Type Severity Reaction Status Date / Time No Known Allergies Allergy Verified 07/31/20 11:12 [facility] Disclaimer: The information contained in this section may have been updated after the patient was seen, as this information can be updated by other users. Social History Smoking Status: Former smoker second hand exposure: Yes alcohol intake: never substance use type: marijuana current occupational status: employed Travel in the last 8 weeks: Inside the [place] household members: significant other housing: house current occupation: self employed current occupational exposures/hazards: No caffeine: Yes ROS Obtained: Yes All systems reviewed & no additional complaints except as documented Physical Exam General General appearance: alert and anxious Neck Neck exam: Present trachea midline Chest Chest inspection: Present normal inspection and symmetric chest wall rise Respiratory Respiratory exam: Present normal lung sounds bilaterally; Absent respiratory distress, wheezes, stridor, accessory muscle use or prolonged expiratory phase Cardiovascular Cardiovascular exam: Present regular rate and normal rhythm Extremities Exam Extremities exam: Absent edema Neurological Exam Neurological exam: Present alert, oriented X3 and CN II-XII intact Skin Skin exam: Present warm and dry; Absent cyanosis, diaphoresis or pallor HEART Score HEART Score HEART Score assessment performed?: Yes History (anamnesis): Moderately suspicious ECG: Non-specific disturbance Age: 45-65 years Risk factors: 1-2 risk factors Troponin: </= normal limit HEART Score: 4 Critical Care Critical Care Time Critical Care Time: Yes (CV) Attestation: On 06/24/23, the high probability of a clinically significant, sudden or life threatening deterioration of the following system(s) required my full and direct attention, intervention and personal management. The time I documented below is in addition to time spent performing reported procedures but includes the following listed in this critical care notation. Total Time Total Critical Care Time: 50 Medical Decision Making Medical Records Medical records reviewed: Yes I reviewed the patient's medical records. Memo Inquiry Pt receiving controlled substance: No Memo was queried for this patient: No Vital Signs Vital Signs: 06/24/23 10:39 06/24/23 11:00 06/24/23 11:30 Temperature 98.0 F Temperature Source Oral Pulse Rate 66 57 L Pulse Rate [Apical] 90 Respiratory Rate 20 Blood Pressure 144/73 H 144/71 H Blood Pressure [Right Arm] 210/101 H Blood Pressure Mean 96 95 Blood Pressure Mean [Right Arm] 137 Blood Pressure Source [Right Arm] Manual Cuff/ Doppler Blood Pressure Position [Right Arm] Sitting 02 Sat by Pulse Oximetry 100 98 99 Oxygen Delivery Method Room Air 06/24/23 12:00 06/24/23 12:30 06/24/23 13:00 Temperature Temperature Source Pulse Rate 65 67 68 Pulse Rate [Apical] Respiratory Rate Blood Pressure 151/81 H 143/78 H 156/81 H Blood Pressure [Right Arm] Blood Pressure Mean 104 112 106 Blood Pressure Mean [Right Arm] Blood Pressure Source [Right Arm] Blood Pressure Position [Right Arm] 02 Sat by Pulse Oximetry 99 99 98 Oxygen Delivery Method 06/24/23 13:30 06/24/23 14:00 06/24/23 14:30 Temperature Temperature Source Pulse Rate 72 66 69 Pulse Rate [Apical] Respiratory Rate Blood Pressure 142/73 H 156/76 H 170/84 H Blood Pressure [Right Arm] Blood Pressure Mean 96 102 112 Blood Pressure Mean [Right Arm] Blood Pressure Source [Right Arm] Blood Pressure Position [Right Arm] 02 Sat by Pulse Oximetry 97 99 99 Oxygen Delivery Method 06/24/23 15:04 06/24/23 15:30 Temperature Temperature Source Pulse Rate 87 85 Pulse Rate [Apical] Respiratory Rate 19 18 Blood Pressure 166/79 H 183/83 H Blood Pressure [Right Arm] Blood Pressure Mean 116 Blood Pressure Mean [Right Arm] Blood Pressure Source [Right Arm] Blood Pressure Position [Right Arm] 02 Sat by Pulse Oximetry 99 99 Oxygen Delivery Method Lab Data Labs: Lab Results 06/24/23 10:42: WBC 6.6, RBC 3.95 L, Hgb 12.1 L, Hct 36.5 L, MCV 92.4, MCH 30.6, MCHC 33.1, RDW 14.2, Plt Count 171, MPV 9.7, Neut % (Auto) 80.0, Lymph % (Auto) 12.4, Gregg % (Auto) 6.0, Eos % (Auto) 0.9, Baso % (Auto) 0.7, Neut # (Auto) 5.3, Lymph # (Auto) 0.8, Gregg # (Auto) 0.4, Eos # (Auto) 0.1, Baso # (Auto) 0.0, Sodium 140, Potassium 3.7, Chloride 107, Carbon Dioxide 22, Anion Gap 14.7, BUN 22 H, Creatinine 1.90 H, Estimated Creat Clear 50, Estimated GFR 36 L, Est GFR ( Amer) 44 L, Glucose 201 H, Calcium 9.5, Total Bilirubin 0.4, AST 33, ALT 33, Alkaline Phosphatase 83, Troponin I 0.02, Total Protein 7.4, Albumin 4.6, Globulin 2.8, Albumin/Globulin Ratio 1.6, SARS-CoV-2 (PCR) Not detected, Influenza A Untype (PCR) Not detected, Influenza Type B (PCR) Not detected 06/24/23 13:30: Troponin I 0.45 H 06/24/23 10:42 06/24/23 10:42 Response Orders (Tests/Meds): ED MEDICATIONS Generic Name Dose Route Start Last Admin Trade Name Freq PRN Reason Stop Dose Admin Heparin Sodium/Dextrose 500 mls @ 20 mls/hr 06/24/23 14:30 Heparin 25,000 Units In D5w 500ml Premix IV 07/24/23 14:29 .Q25H ANDREY 1,000 UNITS/HR Nitroglycerin 0.4 mg 06/24/23 10:46 06/24/23 10:56 Nitroglycerin 0.4mg Sl Tablet SL 07/24/23 10:45 0.4 mg Q5MINP PRN Administration Chest Pain Sodium Chloride 10 ml 06/24/23 10:48 Sodium Chloride 0.9% 10ml Flush Syringe IV 07/24/23 10:47 NEEDED PRN Maintain IV Site Discontinued Medications Generic Name Dose Route Start Last Admin Trade Name Freq PRN Reason Stop Dose Admin Aspirin 324 mg 06/24/23 10:46 06/24/23 10:56 Aspirin 81mg Chewable Tablet PO 06/24/23 10:47 324 mg ONCE ONE Administration Heparin Sodium (Porcine) 4,000 unit 06/24/23 14:24 Heparin Sodium 5,000 Unit/Ml Vial IV 06/24/23 14:25 ONCE ONE ORDERS Category Date Time Status Consult to Cardiology [CONS] Routine Cons 06/24/23 14:25 Active XR chest portable Stat Exams 06/24/23 10:46 Completed Complete Blood Count Auto Diff Stat Lab 06/24/23 10:42 Completed Comprehensive Metabolic Panel Stat Lab 06/24/23 10:42 Completed Rapid PCR Covid and Flu A/B Stat Lab 06/24/23 10:42 Completed Troponin I Q3H Lab 06/24/23 13:30 Completed Troponin I Q3H Lab 06/24/23 17:00 Ordered Troponin I Stat Lab 06/24/23 10:42 Completed MDM Narrative Medical Decision Narrative: This is a 62-year-old male with history of hypertension, kidney transplant in December 2020 presenting with chest pain. Patient states that on and off for the past week he has had shortness of breath and chest pain. Made worse with exertion, better with rest, but is also intermittently present at rest without explanation. States that the chest pressure is sometimes left-sided, sometimes right-sided, radiates to his bilateral arms and associated with arm and chest tingling. No weakness or unilateral deficits. Patient states that he called his patient appointment coordinator today because he was having tremors and they recommended he come to the emergency department for further evaluation. Patient states that he has not had any recent medication changes and has been compliant with all of his medications, as prescribed. He has numerous sick contacts recently with flu, but other than dry cough has had no other symptoms. No lower extremity edema out of the ordinary, diaphoresis, nausea or vomiting, diarrhea, abdominal pain, fevers or chills, or any other concerns. History was obtained via conversation with patient and . On arrival, patient hemodynamically stable, alert, oriented x4, appropriate, GCS 15, moving all extremities spontaneously, pupils equal and reactive to light. Full physical exam performed and significant for hypertensive male who appears anxious. Mildly tremulous, hypertensive 210/101. Cardiac exam otherwise within normal limits with no lower extremity edema. Lungs are clear to auscultation bilaterally. Differential includes hypertensive urgency, hypertensive emergency, microvascular coronary artery disease, CHF, ACS, CO, coronary artery dissection, pneumothorax, PE, dissection, pericarditis, myocarditis, pneumothorax, aortic aneurysm, pneumonia, bronchitis, among others. Patient was given aspirin, nitroglycerin for symptomatic management and correction of underlying abnormalities. Workup independently interpreted and nonactionable CBC. Chemistry with stable kidney function creatinine 1.9. Initial troponin negative. BNP nonactionable. Chest x-ray without acute cardiopulmonary airspace disease see radiology read for full review of final results. Independent interpretation of EKG shows sinus rhythm [address] changes concerning for acute ischemia, but he does have T wave inversions in inferolateral leads without reciprocal change. NH, QRS, QT intervals within normal limits. With normal axis. Patient placed on continuous cardiac monitoring and continuous pulse ox with initial blood pressure 210/101, heart rate 90, saturation 100% on room air. Heart score 4. Repeat troponin elevated 0.45.cardiology was contacted and case was discussed at length, they are to see patient. Hospital medicine was contacted to see patient, they recommended cardiology consultation first. Both cardiology and hospital medicine saw patient. Recommended transfer to transplant facility. [facility] was contacted and graciously excepted transfer because patient high risk for clinical decompensation if discharged, deemed appropriate for transfer and inpatient admission. Results were relayed to patient who voiced understanding and patient was agreeable to transfer, inpatient admission, and management. Patient was graciously accepted and transferred to for further definitive management, under Dr. Ann.
[2023-06-24 11:15] LABS: Troponin I 0.02 ng/ml (0.00-0.034)
--- NOTE | 2023-06-24 11:20 | PC.NURSE ---
ROUNDED ON PT, RATES CP 4/5-10, IMPROVED AFTER NITRO. DR VAZQUEZ UPDATED. NO MORE NITRO AT THIS TIME
--- NOTE | 2023-06-24 12:30 | PC.NURSE ---
Rounded on pt to see if they had any needs. pt asked for a blanket and one was given to them
--- NOTE | 2023-06-24 12:31 | PC.NURSE ---
DR VAZQUEZ AT BEDSIDE TO UPDATE PT
[2023-06-24 14:24] LABS: Troponin I 0.45 ng/ml (0.00-0.034)
--- NOTE | 2023-06-24 14:24 | PC.NURSE ---
critical troponin reported to Dr. Pickens
--- NOTE | 2023-06-24 14:24 | PC.NURSE ---
Called pharmacy for heparin bolus and drip dosing.
--- NOTE | 2023-06-24 14:26 | PC.NURSE ---
DR HOOKS PAGED
--- NOTE | 2023-06-24 14:27 | ECG_ITS ---
APPROVED REPORT Exam: Resting ECG HR:63 bpm ECG Measurements Heart Rate 63 AXES OR 146 P 62 QRSd 100 QRS 53 QT 390 T 37 QTc 398 Conclusion SINUS RHYTHM MODERATE T-WAVE ABNORMALITY, CONSIDER LATERAL ISCHEMIA Electronically signed by : JUAN F VAZQUEZ, 06/24/2023 15:54:24
--- NOTE | 2023-06-24 14:27 | PC.NURSE ---
HOLLY IN CARDIOLOGY NOTIFIED OF CONSULT
--- NOTE | 2023-06-24 14:31 | PC.NURSE ---
DR VAZQUEZ AT BEDSIDE TO UPDATE PT
--- NOTE | 2023-06-24 14:34 | PC.NURSE ---
DR VAZQUEZ SPEAKING WITH CARDIOLOGY
--- NOTE | 2023-06-24 14:52 | PC.NURSE ---
Lunch order put in for patient
--- NOTE | 2023-06-24 14:55 | PC.NURSE ---
DR VAZQUEZ SPEAKING WITH DR HOOKS
--- NOTE | 2023-06-24 15:02 | PC.NURSE ---
[employer] OPERATOR NOTIFIED OF ADMISSION
--- NOTE | 2023-06-24 15:10 | PC.NURSE ---
[facility] CONTACTED AT THIS TIME
--- NOTE | 2023-06-24 15:11 | PC.NURSE ---
CXR POWERED SHARED WITH [facility]
--- NOTE | 2023-06-24 15:42 | PC.NURSE ---
[employer] NOTIFIED THAT PT WILL BE TRANSFERRED TO . BED NO LONGER NEEDED
--- NOTE | 2023-06-24 15:42 | PC.NURSE ---
PT ACCEPTED BY DR AYALA AT ED
[2023-06-24] MEDS: HEPARIN SODIUM 5,000 UNIT/ML VIAL 4000 UNIT IV (17:41)
[2023-06-24] MEDS: HEPARIN SODIUM,PORCINE/D5W 500 ML 20 UNIT IV (17:41)
[2023-06-24 18:15] LABS: Activated Partial Thrombo Time 26.2 seconds (22.8-30.6); INR 1.02 (0.9-1.1)
== END 2023-06-24 18:13 | disposition short-term general hospital (02) ==
LOC: ER 15:02 → 2ND 15:10 → ER 15:42
PROVIDERS: Emergency Provider Emergency Medicine; PCP Internal Medicine Adolescent Medicine
DX: R07.9 Chest pain, unspecified (principal); I21.4 Non-ST elevation (NSTEMI) myocardial infarction; M79.602 Pain in left arm; R68.83 Chills (without fever); R11.0 Nausea; R06.02 Shortness of breath; M79.601 Pain in right arm; Z87.891 Personal history of nicotine dependence; I10 Essential (primary) hypertension
CPT/HCPCS: 71045; 80053; 84484; 85025; 85610; 85730; 87636; 93005; 96374; 99291

== ENCOUNTER 2023-07-09 13:21 | Outpatient (RCR) | payer OTHER, SELFPAY | END 2023-07-09 14:30 | disposition home or self-care (01) | LOC: PT 13:21 | PROVIDERS: Visit Provider Internal Medicine Cardiovascular Disease | DX: I21.4 Non-ST elevation (NSTEMI) myocardial infarction (principal) ==

== ENCOUNTER 2023-08-10 07:33 | Outpatient (CLI) | payer MEDICARE, OTHER, SELFPAY ==
[2023-08-10 08:13] LABS: Microscopic, Urine URINE MICROSCOPIC (MICROSCOPIC)
[2023-08-10 08:35] LABS: Basophils % 0.6 % (0.1-2.0); Eosinophils # 0.2 K/mm3 (0.0-0.4); Hematocrit 35.3 % (42.0-52.0); Hemoglobin 11.7 g/dL (14.1-18.0); Lymphocytes % 15.3 % (10-50); Mean Corpuscular Hemoglobin 30.7 pg (27.0-31.2); Mean Corpuscular Volume 92.8 fl (80-94); Mean Platelet Volume 9.1 fl (7.4-10.4); Monocytes # 0.4 K/mm3 (0.1-1.0); Neutrophils # 4.7 K/mm3 (1.8-7.8); Platelet Count 198 K/mm3 (142-424); Red Cell Distribution Width 14.8 % (11.5-17.5); White Blood Count 6.3 K/mm3 (4.8-10.8)
[2023-08-10 08:36] LABS: Appearance,Urine CLEAR (Clear); Bilirubin,Urine Negative (Negative); Blood, Urine TRACE-I (Negative); Color,Urine YELLOW (Yellow); Glucose,Urine (UA) Negative (Negative); Ketones,Urine Negative (Negative); Leukocyte Esterase,Urine Negative (Negative); Nitrate,Urine Negative (Negative); Protein,Urine Negative (Negative); Specific Gravity, Urine 1.015 (1.005-1.030); Urobilinogen,Urine 0.2 EU/dl (0.2)
[2023-08-10 09:04] LABS: Squamous Epithelial Cell,Urine Occasional #/hpf (0-5); WBC,Urine Occasional #/hpf (0-3)
[2023-08-10 09:15] LABS: Albumin Level 4.6 g/dl (3.5-5.0); Chloride 111 mmol/L (98-107); Potassium 4.3 mmoL/L (3.5-5.1); Sodium 141 mmol/L (136-145)
[2023-08-10 09:18] LABS: Anion Gap 11.3 mEq/L (5-15); Blood Urea Nitrogen 27 mg/dl (9-20); Calcium 9.9 mg/dl (8.4-10.2); Carbon Dioxide 23 mmol/L (22.0-30.0); Estimated Glomerular Filt Rate 32 ml/min (>60); GFR (African American) 39 ML/MIN (>60); Glucose 122 mg/dl (74-100)
[2023-08-10 09:19] LABS: Magnesium 1.8 mg/dl (1.6-2.3)
[2023-08-12 15:29] LABS: BKV DNA, Quant PCR, Plasma 93 IU/mL (Negative); log10 BKV DNA 1.968 (.)
[2023-08-14 09:03] LABS: Tacrolimus (Prograf) 4.9
== END 2023-08-10 23:59 | disposition home or self-care (01) ==
PROVIDERS: PCP Internal Medicine Adolescent Medicine; Visit Provider Internal Medicine
DX: Z94.0 Kidney transplant status (principal); Z79.899 Other long term (current) drug therapy; N39.0 Urinary tract infection, site not specified
CPT/HCPCS: 36415; 80069; 80197; 81001; 83735; 85025; 87799

== ENCOUNTER 2023-09-17 07:43 | Outpatient (CLI) | payer MEDICARE, OTHER, SELFPAY ==
[2023-09-17 09:31] LABS: Chloride 108 mmol/L (98-107)
[2023-09-17 09:32] LABS: Albumin Level 4.3 g/dl (3.5-5.0); Potassium 3.7 mmoL/L (3.5-5.1); Sodium 140 mmol/L (136-145)
[2023-09-17 09:34] LABS: Blood Urea Nitrogen 29 mg/dl (9-20); Estimated Glomerular Filt Rate 31 ml/min (>60); GFR (African American) 37 ML/MIN (>60)
[2023-09-17 09:35] LABS: Anion Gap 12.7 mEq/L (5-15); Calcium 9.3 mg/dl (8.4-10.2); Carbon Dioxide 23 mmol/L (22.0-30.0); Glucose 153 mg/dl (74-100); Phosphorous 3.4 mg/dl (2.5-4.5)
== END 2023-09-17 23:59 | disposition home or self-care (01) ==
LOC: LAB 07:44
PROVIDERS: PCP Internal Medicine Adolescent Medicine; Visit Provider Internal Medicine
DX: Z94.0 Kidney transplant status (principal)
CPT/HCPCS: 36415; 80069

== ENCOUNTER 2023-11-10 13:54 | Outpatient (POV) | payer OTHER, SELFPAY | END 2023-11-10 23:59 | disposition home or self-care (01) | LOC: SC 13:54 | PROVIDERS: PCP Internal Medicine Adolescent Medicine; Visit Provider Dermatology | DX: Z00.00 Encounter for general adult medical examination without abnormal findings (principal) ==